=== PATIENT | male | born 1995 | race African-American/Black ===

== ENCOUNTER 2022-01-08 17:52 | Inpatient (IN) | payer MEDICAID, SELFPAY ==
--- NOTE | ~2022-01-08 | XR_ITS ---
EXAMINATION: XR CHEST CLINICAL INFORMATION: Chest pain COMPARISON: None TECHNIQUE: Frontal view of the chest was obtained. FINDINGS: There is a large left tension pneumothorax with shift of the mediastinum slightly to the right. Heart size normal. Right lung is clear. XR/XR chest 1V IMPRESSION: Left-sided tension pneumothorax.
--- NOTE | ~2022-01-08 | XR_ITS ---
EXAMINATION: XR CHEST CLINICAL INFORMATION: Evaluate pneumothorax COMPARISON: Previous chest x-rays from yesterday TECHNIQUE: Frontal view of the chest was obtained. FINDINGS: The cardiac and mediastinal contours are stable. Left pigtail chest tube appears unchanged in position. There is a small pneumothorax decreased from yesterday's exam. This measures maximum 1.8 cm at the lung apex. The lungs are clear. There is no pleural effusion. Bony structures are unremarkable. XR/XR chest 1V IMPRESSION: Interval decrease in now small left pneumothorax. Stable position of left chest tube.
--- NOTE | ~2022-01-08 | XR_ITS ---
EXAMINATION: XR CHEST CLINICAL INFORMATION: Status post chest tube placement COMPARISON: Chest x-ray of 01/08/2022 obtained at 6:47 PM. TECHNIQUE: Frontal view of the chest was obtained. FINDINGS: Left-sided pigtail catheter is in place with the pigtail of the catheter projecting over the left mid chest laterally. There is persistent moderate to large left pneumothorax although somewhat improved compared to previous x-ray of 01/08/2022. No evidence of pleural effusions. Right lung is clear. No evidence of mediastinal shift. Cardiomediastinal silhouette is normal. Regional skeleton is intact. XR/XR chest 1V IMPRESSION: Left pigtail catheter in place with mild interval improvement in the left pneumothorax with persistent moderate to large left pneumothorax.
--- NOTE | ~2022-01-08 | XR_ITS ---
EXAMINATION: XR CHEST CLINICAL INFORMATION: Left chest tube COMPARISON: Earlier same day TECHNIQUE: Frontal view of the chest was obtained. FINDINGS: Stable position of the left lateral pleural pigtail catheter. There is a stable small left apical pneumothorax measuring 2.3 cm from the apex left hemithorax, unchanged allowing for differences in patient positioning/projection. Right lung clear. No pleural effusion or pneumothorax. Normal heart size and pulmonary vascularity. XR/XR chest 1V IMPRESSION: No appreciable change in size of left apical pneumothorax.
--- NOTE | ~2022-01-08 | XR_ITS ---
EXAMINATION: XR CHEST CLINICAL INFORMATION: Follow-up COMPARISON: None TECHNIQUE: Frontal view of the chest was obtained. FINDINGS: There is a 5% left apical pneumothorax approximately 2 intercostal rib space. There is a left lateral mid chest pleural catheter which is stable. The lungs are otherwise well-expanded and clear. Heart size and pulmonary vascularity is normal. No gross bony abnormality seen. XR/XR chest 1V IMPRESSION: No change in at least 5% of left apical pneumothorax and a pigtail catheter along the left midlung. The lungs are otherwise clear.
--- NOTE | ~2022-01-08 | XR_ITS ---
EXAMINATION: XR CHEST CLINICAL INFORMATION: Follow up pneumothorax. Status post chest tube with wall suction. COMPARISON: Chest x-ray performed earlier on the same day on 01/08/2022. TECHNIQUE: Frontal view of the chest was obtained. FINDINGS: There is wtxslnli-gj-nigpwgckedc interval improvement of the left pneumothorax with small left apical pneumothorax. Left-sided pigtail is in place with the pigtail of the catheter projecting over the left mid chest laterally. Right lung is clear. No pleural effusions. Cardiomediastinal silhouette is normal. Visualized upper abdomen is unremarkable. Regional skeleton is intact. XR/XR chest 1V IMPRESSION: Joelarls-po-ixehmtnyicu interval improvement of the left pneumothorax with persistent small apical pneumothorax.
--- NOTE | ~2022-01-08 | XR_ITS ---
EXAMINATION: XR CHEST CLINICAL INFORMATION: Follow-up left pneumothorax COMPARISON: Previous chest x-ray most recent from yesterday TECHNIQUE: Frontal view of the chest was obtained. FINDINGS: The cardiac and mediastinal contours are stable. The lungs are clear. Left lateral chest tube appears unchanged in position. There is a small left apical pneumothorax measuring 2.3 cm in maximum dimension that appears unchanged. There is no pleural effusion. There is no right pneumothorax. Bony structures are unremarkable. XR/XR chest 1V IMPRESSION: Stable position of left chest tube. Stable small left apical pneumothorax.
--- NOTE | 2022-01-08 17:58 | ECG_ITS ---
Test Reason : CHEST PAIN Blood Pressure : / mmHG Vent. Rate : 106 BPM Atrial Rate : 106 BPM P-R Int : 142 ms QRS Dur : 092 ms QT Int : 328 ms P-R-T Axes : 079 162 070 degrees QTc Int : 435 ms Sinus tachycardia Right atrial enlargement Right axis deviation Pulmonary disease pattern Right ventricular hypertrophy Abnormal ECG No previous ECGs available Referred By: Generic ED Physician Electronically Signed By:PARUL ANDRE MD
[2022-01-08 18:11] VITALS: BP 98/60; PULSE 105; RESP 20; TEMP 36.4; O2SAT 98; BMI 20.3
[2022-01-08 18:14] LABS: MANUAL DIFF FLAG NO
[2022-01-08 18:18] LABS: Basophils Percent Auto 0.3 % (0-2); Eosinophils Percent Auto 0.1 % (0-4); Hematocrit 41.1 % (42.0-52.0); Hemoglobin 14.2 g/dl (14.0-18.0); Imm Gran Abs Auto 0.03 X10*3/uL (0.00-0.03); Imm Gran Pct Auto 0.3 % (0.0-0.4); Lymphocytes Absolute Auto 0.9 X10*3/uL (1.2-4.9); Lymphocytes Percent Auto 8.8 % (20-40); Mean Corpuscular HGB Conc 34.5 g/dl (31.0-36.0); Mean Corpuscular Hemoglobin 31.8 pg (27.0-33.0); Mean Corpuscular Volume 91.9 fL (80.0-98.0); Mean Platelet Volume 10.1 fL (9.4-12.4); Monocytes Absolute Auto 0.4 X10*3/uL (0.1-1.2); Monocytes Percent Auto 3.9 % (2-11); Neutrophils Absolute Auto 9.1 x10*3/uL (2.0-8.3); Neutrophils Percent Auto 86.6 % (45-73); Platelet Count 165 X10*3/uL (160-400); Red Blood Count 4.47 X10*6/uL (4.60-5.80); Red Cell Distribution Width 11.6 % (11.0-16.0); White Blood Count 10.5 X10*3/uL (4.8-10.8)
[2022-01-08 18:28] LABS: Anion Gap 13 (12-20); Blood Urea Nitrogen 18 mg/dL (9-16); Calcium 9.9 mg/dL (8.4-10.2); Carbon Dioxide 24 mmol/L (22-29); Chloride 107 mmol/L (96-108); Creatinine Clr Calc Pharmacy 80.4; Estimated Glomerular Filt Rate > 60; Glucose Random 120 mg/dL (60-115); Potassium 3.9 mmol/L (3.3-5.1); Sodium 140 mmol/L (135-145)
[2022-01-08 18:35] LABS: Troponin-I High Sensitivity < 3.5 ng/L (<3.5-35.0)
[2022-01-08 19:47] VITALS: BP 125/70; PULSE 78; RESP 15; TEMP 37.1; O2SAT 100
--- NOTE | 2022-01-08 19:49 | ED_ITS ---
HPI - Chest Pain General Chief Complaint: Chest Pain Stated Complaint: Heart attack? SOB, chest hurts and is tight Time Seen by Provider: 01/08/22 19:09 Source: patient Mode of arrival: ambulatory Limitations: no limitations History of Present Illness HPI narrative: Patient is smoker woke up today with slight chest pain mostly on the left side increased on deep inspiration got worse 1 hour prior to arrival pain is sharp in character that for taking a deep breath. No cough no fever no chills no other significant medical history Related Data Home Medications Medication Instructions Recorded Confirmed No Known Home Meds 01/08/22 01/08/22 Allergies Allergy/AdvReac Type Severity Reaction Status Date / Time No Known Allergies Allergy Verified 01/08/22 18:14 Review of Systems Review of Systems: Yes all other systems are reviewed and are negative [facility] Social History Social History Alcohol intake: current Smoked in Last 30 Days: Yes Use of substances other than those prescribed or required for medical reasons: No Any prior treatment program specific to substance use: No Advance Directives: No Physical Exam Vital Signs: Vital Signs: Last Vital Signs Temp 98.1 F 01/08/22 22:12 Pulse 48 L 01/09/22 00:23 Resp 20 01/09/22 00:23 BP 104/69 01/09/22 00:23 Pulse Ox 100 01/09/22 00:23 BMI result Body Mass Index 20.3 Appearance: Alert. Oriented X3. Mild distress thin built Eyes: No pallor or icterus ENT: Pharynx normal. Oral Mucosa moist Neck: Normal inspection. Neck supple. CVS: Normal heart rate and rhythm. Pulses normal. Respiratory: No respiratory distress. no wheezing/rales/rhonchi decreased air entry left side no crepitation Abdomen: Soft and nontender. Bowel sounds are present, no mass palpable, Skin: Skin warm and dry. Normal skin color. Normal skin turgor. Extremities: No lower extremity edema. No calf tenderness Neuro: Oriented X 3. Procedures Chest Tube Chest Tube 1: Chest Tube Location: left and mid axillary line Chest Tube Prep: Yes sterile drapes applied Local Anesthetic: lidocaine 2% Amount of anesthesia used (mL): 5 Incision Made With: #11 blade Post Procedure: sutured to skin Tube Drainage: none Post Procedure CXR?: Yes Patient Tolerated Procedure: Yes Progress: Bud PleurX catheter was placed on the left 4th intercostal space MDM - Chest Pain Lab Data Result diagrams: 01/08/22 18:08 01/08/22 18:08 Labs: Lab Results 01/08/22 01/08/22 01/08/22 Range/Units 18:08 18:08 18:08 WBC 10.5 (4.8-10.8) X10*3/uL RBC 4.47 L (4.60-5.80) X10*6/uL Hgb 14.2 (14.0-18.0) g/dl Hct 41.1 L (42.0-52.0) % MCV 91.9 (80.0-98.0) fL MCH 31.8 (27.0-33.0) pg MCHC 34.5 (31.0-36.0) g/dl RDW 11.6 (11.0-16.0) % Plt Count 165 (160-400) X10*3/uL MPV 10.1 (9.4-12.4) fL Immature Gran % (Auto) 0.3 (0.0-0.4) % Neut % (Auto) 86.6 H (45-73) % Lymph % (Auto) 8.8 L (20-40) % Morgan % (Auto) 3.9 (2-11) % Eos % (Auto) 0.1 (0-4) % Baso % (Auto) 0.3 (0-2) % Lymph # (Auto) 0.9 L (1.2-4.9) X10*3/uL Morgan # (Auto) 0.4 (0.1-1.2) X10*3/uL Eos # (Auto) 0.0 (0.0-0.4) X10*3/uL Baso # (Auto) 0.0 (0.0-0.2) X10*3/uL Abs Immat Gran (auto) 0.03 (0.00-0.03) X10*3/uL Absolute Neuts (auto) 9.1 H (2.0-8.3) x10*3/uL Absolute Nucleated RBC 0.000 (0.0-0.012) X10*3/uL Nucleated RBC % (auto) 0.0 (0.0-0.2) /100WBC Sodium 140 (135-145) mmol/L Potassium 3.9 (3.3-5.1) mmol/L Chloride 107 (96-108) mmol/L Carbon Dioxide 24 (22-29) mmol/L Anion Gap 13 (12-20) BUN 18 H (9-16) mg/dL Creatinine 1.17 (0.5-1.4) mg/dL Estim Creat Clear Calc 80.4 Estimated GFR > 60 Random Glucose 120 H (60-115) mg/dL Calcium 9.9 (8.4-10.2) mg/dL Troponin I High Sens < 3.5 (<3.5-35.0) ng/L Critical Care Time Critical Care Time Critical Care Time: Yes Total Critical Care Time: 45 Attestation: I spent 45 minutes of critical care, with interventions, assessments, speaking to patient, consultants, and family. Discharge Plan Discharge Clinical Impression: Pneumothorax Patient Disposition: Admitted As Inpatient
--- NOTE | 2022-01-08 19:50 | PC.NURSE ---
1915: MD gonzalez at bedside Verbal order given for 2% Lidocaine 10ml to be given sub q and 1 L NS to be given. Chest tube placed without incident. VSS. Monitored Through out Tolerated well. Staff at bedside: ; lisa mccann ERT: Darion RN: Natasha RT: Александр.
[2022-01-08 20:00] VITALS: BP 122/66; PULSE 70; RESP 18; O2SAT 100
[2022-01-08] MEDS: Ketorolac Tromethamine 30 MG/ML VIAL IVPUSH (20:54)
--- NOTE | 2022-01-08 21:06 | PC.NURSE ---
Medicated with IV ketorolac for pain. Water seal intact.
--- NOTE | 2022-01-08 21:51 | PHA.MEDREC ---
Pharmacy Consult ? Medication Reconciliation Pharmacy has completed the medication reconciliation. Patient reports no medications. Brooklynn Abdi, DonnieD
[2022-01-08 22:00] VITALS: BP 112/64; PULSE 61; RESP 20; TEMP 36.7; O2SAT 99
[2022-01-08 22:12] VITALS: BP 112/64; PULSE 55; RESP 22; TEMP 36.7; O2SAT 100
[2022-01-08] MEDS: Acetaminophen 325 MG TABLET 975 MG PO (22:22)
[2022-01-09 00:23] VITALS: BP 104/69; PULSE 48; RESP 20; O2SAT 100
[2022-01-09 01:34] LABS: COVID-19 Test Negative (Negative)
--- NOTE | 2022-01-09 02:01 | PM.IMHP ---
History of Present Illness Date of Service: 01/09/22 Chief Complaint: chest pain 26-year-old male with no significant past medical history except for cannabis use presented to the hospital today with a chief complaint of chest pain. Patient reported that he was in his house and he suddenly felt chest pain, tight in nature, severe, associated with shortness of breath; denied any lightheadedness or dizziness. Denies any diaphoresis. ; presented to the ER for further evaluation. Denies any chest pain at the time of my interview. Denies any numbness tingling or focal weakness. Denies any violent coughing or sneezing. Denies any falls or trauma. Denies any GI symptoms. Patient reported that he smokes marijuana. Review of all other systems is negative except mentioned above ER course: Per ER team patient on presentation noted to have CR shortness of breath; chest x-ray showed tension pneumothorax with mild midline shift; patient had pigtail catheter placed; follow-up chest x-ray showed improvement in the pneumothorax; notified Dr. Castle from Cardiothoracic surgery who suggested admission to the medicine service. [facility] Social History Alcohol intake: current Smoked in Last 30 Days: Yes Use of substances other than those prescribed or required for medical reasons: No Any prior treatment program specific to substance use: No Advance Directives: No Meds Allergies Allergy/AdvReac Type Severity Reaction Status Date / Time No Known Allergies Allergy Verified 01/08/22 18:14 Active Medications: Current Medications Heparin Sodium (Porcine) (Heparin Sodium,Porcine 5,000 Unit/Ml Vial) 5,000 unit SUBCUT Q8H [facility] Hydromorphone HCl (Hydromorphone Hcl 1 Mg/Ml Syringe) 0.5 mg IVPUSH Q4H PRN; Protocol PRN Reason: Pain, Severe (Pain Scale 7-10) Melatonin (Melatonin 3 Mg Tablet) 6 mg PO BEDTIME PRN PRN Reason: Insomnia Senna (Sennosides 8.6 Mg Tablet) 17.2 mg PO BEDTIME PRN PRN Reason: Constipation Sodium Chloride (0.9 % Sodium Chloride Flush 3 Ml Syringe) 3 ml IVFLUSH QSHIFT [facility] Home Medications Medication Instructions Recorded Confirmed Last Taken Type No Known Home Meds 01/08/22 01/08/22 Unknown History Physical Exam Vital Signs and Narrative: Vital Signs: Last Vital Signs Temp 98.1 F 01/08/22 22:12 Pulse 48 L 01/09/22 00:23 Resp 20 01/09/22 00:23 BP 104/69 01/09/22 00:23 Pulse Ox 100 01/09/22 00:23 BMI result Body Mass Index 20.3 Gen: Appears be in no acute distress HEENT: NCAT, Moist mucosa. Pulmonary: slightly diminished breath sounds on left side CVS: Normal S1-S2 Abdomen: BS+, Soft, Nontender Extremities: Warm well perfused Neuro: Alert and awake. Results Labs CBC and Chem 7: 01/08/22 18:08 01/08/22 18:08 Labs: Laboratory Results - last 24 hr 01/08/22 01/08/22 01/08/22 18:08 18:08 18:08 MCV 91.9 MCH 31.8 MCHC 34.5 RDW 11.6 Plt Count 165 MPV 10.1 Immature Gran % (Auto) 0.3 Neut % (Auto) 86.6 H Lymph % (Auto) 8.8 L Roosevelt % (Auto) 3.9 Eos % (Auto) 0.1 Baso % (Auto) 0.3 Lymph # (Auto) 0.9 L Roosevelt # (Auto) 0.4 Eos # (Auto) 0.0 Baso # (Auto) 0.0 Abs Immat Gran (auto) 0.03 Absolute Neuts (auto) 9.1 H Absolute Nucleated RBC 0.000 Nucleated RBC % (auto) 0.0 Anion Gap 13 Estim Creat Clear Calc 80.4 Estimated GFR > 60 Random Glucose 120 H Calcium 9.9 Troponin I High Sens < 3.5 COVID-19 ([facility]) COVID-19 Clin Com 01/09/22 01:13 MCV MCH MCHC RDW Plt Count MPV Immature Gran % (Auto) Neut % (Auto) Lymph % (Auto) Roosevelt % (Auto) Eos % (Auto) Baso % (Auto) Lymph # (Auto) Roosevelt # (Auto) Eos # (Auto) Baso # (Auto) Abs Immat Gran (auto) Absolute Neuts (auto) Absolute Nucleated RBC Nucleated RBC % (auto) Anion Gap Estim Creat Clear Calc Estimated GFR Random Glucose Calcium Troponin I High Sens COVID-19 ([facility]) Negative COVID-19 Clin Com See Note Imaging Radiologist's Impressions: Impressions Chest X-Ray 01/08/22 18:47 IMPRESSION: Left-sided tension pneumothorax. Chest X-Ray 01/08/22 20:11 IMPRESSION: Left pigtail catheter in place with mild interval improvement in the left pneumothorax with persistent moderate to large left pneumothorax. Chest X-Ray 01/08/22 20:37 IMPRESSION: Dhgkyjau-cu-mastpbatftw interval improvement of the left pneumothorax with persistent small apical pneumothorax. Assessment and Plan (1) Pneumothorax: Status: Acute Plan 26-year-old male with no significant past medical history except for cannabis use presented to the hospital today with a chief complaint of chest pain. Noted to have spontaneous pneumothorax. Admitted for further management. Spontaneous pneumothorax: Status post pigtail catheter placement with water-seal. Follow-up chest x-ray showed improvement in pneumothorax Discussed with Dr. jackson from ICU- who mentioned that post catheter the pneumothorax fairly improved but still has about 10-20%. Which will gradually improve. Recommended admission to the [facility]. Cardiothoracic surgery aware of the patient. Patient advised to avoid cannabis use, heavy exercise and air flight until cleared by pulmonology in couple weeks. Li daily.rsho Pain control Repeat chest x-ray in the morning DVT prophylaxis: Subcu heparin Code status: Full code Quality Stroke Does the patient have a stroke diagnosis?: No VTE Prior VTE?: No VTE Risk Level:: Medical - moderate - high VTE Device Contraindication: N/A - Device Ordered VTE Drug Contraindication: Treatment Not Indicated
[2022-01-09 04:25] VITALS: BP 114/68; PULSE 58; RESP 20; O2SAT 100
[2022-01-09] MEDS: ondansetron HCL 4 MG/2 ML VIAL IVPUSH ×2 (06:30→13:22)
[2022-01-09] MEDS: Ketorolac Tromethamine 15 MG/ML VIAL IVPUSH (06:30)
--- NOTE | 2022-01-09 06:39 | PC.NURSE ---
Patient complaining of nausea and pain where his chest tube is. Medicated with zofran and toradol. Patient continues to have heart rates in the 40-50. Hospitalist is aware. Patient is not symptomatic and usually runs in the 50's when awake.
[2022-01-09 06:59] LABS: MANUAL DIFF FLAG NO
[2022-01-09 07:06] LABS: Basophils Percent Auto 0.3 % (0-2); Eosinophils Absolute Auto 0.1 X10*3/uL (0.0-0.4); Eosinophils Percent Auto 1.6 % (0-4); Hematocrit 39.9 % (42.0-52.0); Hemoglobin 13.4 g/dl (14.0-18.0); Imm Gran Abs Auto 0.01 X10*3/uL (0.00-0.03); Imm Gran Pct Auto 0.2 % (0.0-0.4); Lymphocytes Absolute Auto 1.7 X10*3/uL (1.2-4.9); Mean Corpuscular HGB Conc 33.6 g/dl (31.0-36.0); Mean Corpuscular Hemoglobin 31.4 pg (27.0-33.0); Mean Corpuscular Volume 93.4 fL (80.0-98.0); Mean Platelet Volume 10.6 fL (9.4-12.4); Monocytes Absolute Auto 0.7 X10*3/uL (0.1-1.2); Monocytes Percent Auto 10.8 % (2-11); Neutrophils Absolute Auto 3.6 x10*3/uL (2.0-8.3); Neutrophils Percent Auto 59.1 % (45-73); Platelet Count 152 X10*3/uL (160-400); Red Blood Count 4.27 X10*6/uL (4.60-5.80); Red Cell Distribution Width 11.9 % (11.0-16.0); White Blood Count 6.1 X10*3/uL (4.8-10.8)
[2022-01-09 07:37] VITALS: BP 118/79; PULSE 44; RESP 19; TEMP 36.7; O2SAT 100
[2022-01-09 07:49] LABS: Anion Gap 10 (12-20); Blood Urea Nitrogen 17 mg/dL (9-16); Carbon Dioxide 27 mmol/L (22-29); Chloride 109 mmol/L (96-108); Creatinine Clr Calc Pharmacy 104.6; Estimated Glomerular Filt Rate > 60; Glucose Random 84 mg/dL (60-115); Potassium 4.2 mmol/L (3.3-5.1); Sodium 141 mmol/L (135-145)
[2022-01-09] MEDS: Heparin Sodium,Porcine 5,000 UNIT/ML VIAL 5000 UNIT SUBCUT ×2 (08:47→16:27)
[2022-01-09] MEDS: 0.9 % Sodium Chloride Flush 3 ML SYRINGE IVFLUSH ×2 (08:47→16:27)
--- NOTE | 2022-01-09 09:51 | PM.EVENT ---
Event Note Date of Service: 01/09/22 Event Note: day hospitalist update S pain controlled no dyspnea O VS T 98, BP 118/79, P 44, R 19, SaO2 100 on 2L NC gen NAD lungs CTAB, L-sided thoracostomy tube to suction CV bradycardic, regular, no m/r/g abd soft/NT ext no edema neuro no focal findings Impressions Chest X-Ray 01/08/22 18:47 IMPRESSION: Left-sided tension pneumothorax. Chest X-Ray 01/08/22 20:11 IMPRESSION: Left pigtail catheter in place with mild interval improvement in the left pneumothorax with persistent moderate to large left pneumothorax. Chest X-Ray 01/08/22 20:37 IMPRESSION: Bclczxss-oh-cwzewqtmksf interval improvement of the left pneumothorax with persistent small apical pneumothorax. Chest X-Ray 01/09/22 09:07 IMPRESSION: Interval decrease in now small left pneumothorax. Stable position of left chest tube. A/P hospital d#1 26yo healthy M with inhalation cannabis use presenting with dyspnea, admitted for spontaneous PTX with tension physiology, improved s/p chest tube - Thoracic Consult pending - chest tube to suction - repeat CXR in AM - pain control, IS
[2022-01-09 11:22] VITALS: BP 131/72; PULSE 46; RESP 19; O2SAT 100
--- NOTE | 2022-01-09 11:49 | PC.NURSE ---
contacted dr. dickens regarding pts HR at 46 while awake. pt has been bradycardic in the high 30's to 40s. no new orders at this time
--- NOTE | 2022-01-09 12:33 | PC.NURSE ---
pt vomited x2, reprots nausea. MD Villagran contacted for zofran.
[2022-01-09 15:55] VITALS: BP 119/72; PULSE 51; RESP 17; TEMP 36.9; O2SAT 100
[2022-01-09 22:48] VITALS: BP 116/60; PULSE 64; RESP 14; TEMP 37.1; O2SAT 97
--- NOTE | 2022-01-09 22:48 | PC.NURSE ---
Pt resting comfortably, chest tube in place, no leaks detected. Will continue to monitor. Awaiting bed assignment.
[2022-01-10] VITALS (7 sets, daily range): BP systolic 118–137; BP diastolic 59–83; PULSE 55–72; RESP 15–24; TEMP 37; O2SAT 98–100
[2022-01-10] MEDS: Heparin Sodium,Porcine 5,000 UNIT/ML VIAL 5000 UNIT SUBCUT ×3 (02:01→23:16)
[2022-01-10] MEDS: 0.9 % Sodium Chloride Flush 3 ML SYRINGE IVFLUSH ×4 (02:01→23:13)
--- NOTE | 2022-01-10 03:16 | PC.NURSE ---
Pt has complained of mild chest pain around chest tube insertion site, but says he does not want pain meds. Pt's seal is good no leaks detected in chest tube.
--- NOTE | 2022-01-10 10:16 | PC.NURSE ---
Pt denies pain at this time. He states that the tube is only uncomfortable in some positions. PT's sats high 90s on [address] remains in place with only small amount of serosanquenous drainage in bottom of tube possible from time of insertion. Suction remains at -20. Level 2 air leak noted wtih position change but otherwisde not present and there is no fluctuation in the water seal chamber. Tube insertion site without any drainage or SC emphysema
--- NOTE | 2022-01-10 10:48 | PC.NURSE ---
Chest tube placed on water seal per at this time.
--- NOTE | 2022-01-10 11:27 | MHC.CM.PN ---
Met with pt to discuss dc plan: pt states he is 'staying' with friends in [place] but has a residence at [address] [place] [address] [place] [address]. Pt somewhat vague with information. Pt has not seen a provider in close to 10 years as he has health on his side No Covid vax hx. Pt will not be eligible for post dc services as he does not have a [place] payor source or local PCP. He said his last known insurance was [employer] (?). He states he is 'considering' becoming a resident of [place]. Consult [facility] [place] [facility]. Pt has cell phone and will call friends for transportation. CM to follow.
--- NOTE | 2022-01-10 12:18 | PC.NURSE ---
At 1100 notified that pt had left shoulder pain similar to when he arrived to hospital after discontinuing suction and placing pt on water seal. Sats were appropriate at that shun (100% on 2liters NC). No new orders at this time. igeer message gave read rect from
--- NOTE | 2022-01-10 14:26 | P.PNIM_ITS ---
Subjective Subjective Date of Service: 01/10/22 Interval History: This AM no dyspnea and minimal discomfort from chest tube. Placed to water seal after discussing with Dr Felder; Thoracic Surgery PA will see pt this afternoon. Review of Systems Review of Systems: Yes all other systems are reviewed and are negative Physical Exam Vital Signs: Vital Signs: Last Vital Signs Temp 98.6 F 01/10/22 06:17 Pulse 72 01/10/22 10:13 Resp 22 H 01/10/22 10:13 BP 137/59 L 01/10/22 10:13 Pulse Ox 100 01/10/22 10:13 BMI result Body Mass Index 20.3 Gen: in no acute distress, thin HEENT: sclera anicteric, moist mucus membranes Neck: supple Lungs: L chest tube to suction, no air leak Heart: regular rate and rhythm, no murmurs Abd: soft, non-tender, non-distended Ext: no edema Skin: warm/well-perfused Neuro: alert and oriented x3, no focal findings Psych: appropriate affect Objective Data Active Medications Albuterol/Ipratropium (Albuterol/Iprat 2.5/0.5mg 3 Ml Ampul.Neb) 3 ml INHALE RQ4H PRN PRN Reason: Shortness of Breath/Wheezing Heparin Sodium (Porcine) (Heparin Sodium,Porcine 5,000 Unit/Ml Vial) 5,000 unit SUBCUT Q8H [facility] Last Admin: 01/10/22 08:28 Dose: 5,000 unit Documented by: CAMACHO Hydromorphone HCl (Hydromorphone Hcl 1 Mg/Ml Syringe) 0.5 mg IVPUSH Q4H PRN; Protocol PRN Reason: Pain, Severe (Pain Scale 7-10) Ketorolac Tromethamine (Ketorolac Tromethamine 15 Mg/Ml Vial) 15 mg IVPUSH Q6H PRN PRN Reason: moderate pain Melatonin (Melatonin 3 Mg Tablet) 6 mg PO BEDTIME PRN PRN Reason: Insomnia Ondansetron HCl (Ondansetron Hcl 4 Mg/2 Ml Vial) 4 mg IVPUSH Q4H PRN PRN Reason: nausea/vomiting Last Admin: 01/09/22 13:22 Dose: 4 mg Documented by: KONRAD Senna (Sennosides 8.6 Mg Tablet) 17.2 mg PO BEDTIME PRN PRN Reason: Constipation Sodium Chloride (0.9 % Sodium Chloride Flush 3 Ml Syringe) 3 ml IVFLUSH QSHIFT [facility] Last Admin: 01/10/22 08:30 Dose: 3 ml Documented by: CAMACHO Labs CBC & Chem 7: 01/09/22 05:48 01/09/22 05:48 Assessment and Plan (1) Pneumothorax: Status: Acute Plan hospital d#2 26yo M presenting with chest pain and found to have spontaneous tension PTX, improved after chest tube placement 01/08 - awaiting Thoracic Surgery consult, chest tube to water seal - pt should avoid smoking cannabis and usual flight/exercise restrictions - UFH for VTE ppx Quality Stroke Does the patient have a stroke diagnosis?: No VTE Prior VTE?: No VTE Risk Level:: Medical - moderate - high VTE Device Contraindication: N/A - Device Ordered VTE Drug Contraindication: Treatment Not Indicated
--- NOTE | 2022-01-10 14:29 | PC.NURSE ---
X-ray ordered and pt notified of plan. Pt placed back o -20cm suction at this time per pending CXR results. Pt's VSS
[2022-01-10] MEDS: Ketorolac Tromethamine 15 MG/ML VIAL IVPUSH (14:36)
--- NOTE | 2022-01-10 18:21 | PM.CNGS ---
History of Present Illness Consult details Consult date: 01/10/22 Narrative: Patient is a 26-year-old male with a past history of childhood asthma, chronic marijuana smoker who smokes approximately 1/4 oz of marijuana daily presented to [facility] after having left-sided chest and shoulder pain with increased shortness of breath 2 nights ago on Monday night. Patient states he was sitting at home during this occurrence with his and denies any trauma to his chest. A chest x-ray was obtained which showed a large left-sided pneumothorax. A pigtail catheter was placed by ED physician and chest tube attached to Pleur-Evac at -20 low wall suction with full resolution of left-sided pneumothorax For wished thoracic surgery is consulted for pest controller assistant in managing. upon my arrival to the emergency department patient denies any shortness of breath at rest and states that his breathing as well as left-sided chest pain has greatly improved. He continues on 2 L nasal cannula and I placed his left-sided chest tube to water seal with plans for a repeat chest x-ray tomorrow a.m. Remaining 10 point review of systems negative. Review of Systems Review of Systems: Yes all other systems are reviewed and are negative [facility] Social History Social History Alcohol intake: current Smoked in Last 30 Days: Yes Use of substances other than those prescribed or required for medical reasons: No Any prior treatment program specific to substance use: No Advance Directives: No service: No Current occupational status: unemployed Meds Allergies Allergy/AdvReac Type Severity Reaction Status Date / Time No Known Allergies Allergy Verified 01/08/22 18:14 Active Medications: Current Medications Albuterol/Ipratropium (Albuterol/Iprat 2.5/0.5mg 3 Ml Ampul.Neb) 3 ml INHALE RQ4H PRN PRN Reason: Shortness of Breath/Wheezing Heparin Sodium (Porcine) (Heparin Sodium,Porcine 5,000 Unit/Ml Vial) 5,000 unit SUBCUT Q8H GEOVANNA Last Admin: 01/10/22 08:28 Dose: 5,000 unit Documented by: Hydromorphone HCl (Hydromorphone Hcl 1 Mg/Ml Syringe) 0.5 mg IVPUSH Q4H PRN; Protocol PRN Reason: Pain, Severe (Pain Scale 7-10) Ketorolac Tromethamine (Ketorolac Tromethamine 15 Mg/Ml Vial) 15 mg IVPUSH Q6H PRN PRN Reason: moderate pain Last Admin: 01/10/22 14:36 Dose: 15 mg Documented by: Melatonin (Melatonin 3 Mg Tablet) 6 mg PO BEDTIME PRN PRN Reason: Insomnia Ondansetron HCl (Ondansetron Hcl 4 Mg/2 Ml Vial) 4 mg IVPUSH Q4H PRN PRN Reason: nausea/vomiting Last Admin: 01/09/22 13:22 Dose: 4 mg Documented by: Senna (Sennosides 8.6 Mg Tablet) 17.2 mg PO BEDTIME PRN PRN Reason: Constipation Sodium Chloride (0.9 % Sodium Chloride Flush 3 Ml Syringe) 3 ml IVFLUSH QSHIFT [facility] Last Admin: 01/10/22 08:30 Dose: 3 ml Documented by: Home Medications Medication Instructions Recorded Confirmed Last Taken Type No Known Home Meds 01/08/22 01/08/22 Unknown History Physical Exam Vital Signs: Vital Signs: Last Vital Signs Temp 98.6 F 01/10/22 06:17 Pulse 62 01/10/22 14:30 Resp 24 H 01/10/22 14:30 BP 134/68 01/10/22 14:30 Pulse Ox 99 01/10/22 14:30 BMI result Body Mass Index 20.3 Const: General: cooperative, comfortable and no acute distress Orientation/consciousness: patient oriented x3 HEENT: Head: Yes normal to inspection and Yes normocephalic Eyes: General: appearance normal, both eyes and all related structures Conjunctivae: conjunctivae normal Sclerae: sclerae normal Pupils: Equal, round and reactive pupils present Neck: Neck: Yes normal visual inspection Chest: Other: left-sided pigtail catheter remains indwelling into pleural cavity and secured with dressing clean and dry and intact. No detectable air leak with minimal serosanguineous fluid output on water seal. Resp: Other: Breath sounds clear to auscultation bilaterally with no adventitious sounds such as wheezes or rhonchi Cardio: Other: regular rate and rhythm with S1-S2 appreciated. No murmurs rubs or gallops GI: Inspection: Yes normal to inspection Percussion: Yes normal to percussion Auscultation: normal bowel sounds Rectal Exam - Male: Yes deferred Neuro: General: patient oriented x3 Cranial nerves: Yes Equal, round and reactive pupils present Extrem: General: Yes normal to inspection, No clubbing and No cyanosis Right upper extremity: normal capillary refill Left upper extremity: normal capillary refill Results Labs Result diagrams: 01/09/22 05:48 01/09/22 05:48 Labs: All other labs normal. Imaging Chest x-ray: report reviewed and image reviewed Assessment and Plan (1) Pneumothorax: Status: Acute [facility] d#2 26yo M presenting with chest pain and found to have spontaneous tension PTX, improved after chest tube placement 01/08 - left-sided chest tube placed to water seal this evening. There is no detectable air leak and chest x-ray shows full re-expansion of left-sided pneumothorax. - Plan for chest x-ray tomorrow a.m.. - If morning chest x-ray remained stable will plan for chest tube removal tomorrow afternoon and patient will be okay for discharge that time. - Incentive spirometry. - OOB in chair for all meals. Procedures Date of Service Date of Service: 01/10/22
[2022-01-10 19:26] LABS: Glucose, Whole Blood 142 mg/dL (60-115)
--- NOTE | 2022-01-11 00:21 | PC.NURSE ---
Report given to ABRAM Ramesh on IMC.
--- NOTE | 2022-01-11 00:48 | PC.NURSE ---
This nurse and sterile proc tech transferring patient to [facility] bed 446. Chest tube in place with water seal. VSS.
[2022-01-11 01:30] VITALS: BP 118/67; PULSE 52; RESP 18; TEMP 36.8; O2SAT 100
[2022-01-11 08:00] VITALS: BP 116/61; PULSE 67; RESP 16; TEMP 37.2; O2SAT 100
[2022-01-11] MEDS: 0.9 % Sodium Chloride Flush 3 ML SYRINGE IVFLUSH ×3 (08:42→23:43)
[2022-01-11] MEDS: Heparin Sodium,Porcine 5,000 UNIT/ML VIAL 5000 UNIT SUBCUT ×2 (08:48→15:52)
[2022-01-11 11:15] VITALS: BP 111/66; PULSE 55; RESP 18; TEMP 36.8; O2SAT 100
--- NOTE | 2022-01-11 14:18 | HO.PM.IMPN ---
Subjective Subjective Date of Service: 01/11/22 Interval History: No acute issues overnight. Remains tolerant of chest to. Review of Systems Denies chest pain Denies shortness of breath Denies nausea vomiting diarrhea Denies fever chills Physical Exam Vital Signs: Vital Signs: Last Vital Signs Temp 98.3 F 01/11/22 11:15 Pulse 55 01/11/22 11:15 Resp 18 01/11/22 11:15 BP 111/66 01/11/22 11:15 Pulse Ox 100 01/11/22 11:15 BMI result Body Mass Index 20.0 Const: Other: Awake alert oriented x3 no acute distress Resp: Other: Clear to auscultation bilaterally Cardio: Other: No S4; positive S1-S2; no S3 murmurs rubs or gallops GI: Other: Soft nontender nondistended normoactive bowel sounds Extrem: Other: No edema bilaterally Objective Data Active Medications Albuterol/Ipratropium (Albuterol/Iprat 2.5/0.5mg 3 Ml Ampul.Neb) 3 ml INHALE RQ4H PRN PRN Reason: Shortness of Breath/Wheezing Heparin Sodium (Porcine) (Heparin Sodium,Porcine 5,000 Unit/Ml Vial) 5,000 unit SUBCUT Q8H GEOVANNA Last Admin: 01/11/22 08:48 Dose: 5,000 unit Documented by: KELSEY Hydromorphone HCl (Hydromorphone Hcl 1 Mg/Ml Syringe) 0.5 mg IVPUSH Q4H PRN; Protocol PRN Reason: Pain, Severe (Pain Scale 7-10) Ketorolac Tromethamine (Ketorolac Tromethamine 15 Mg/Ml Vial) 15 mg IVPUSH Q6H PRN PRN Reason: moderate pain Last Admin: 01/10/22 14:36 Dose: 15 mg Documented by: ENRIQUE Melatonin (Melatonin 3 Mg Tablet) 6 mg PO BEDTIME PRN PRN Reason: Insomnia Ondansetron HCl (Ondansetron Hcl 4 Mg/2 Ml Vial) 4 mg IVPUSH Q4H PRN PRN Reason: nausea/vomiting Last Admin: 01/09/22 13:22 Dose: 4 mg Documented by: KONRAD Senna (Sennosides 8.6 Mg Tablet) 17.2 mg PO BEDTIME PRN PRN Reason: Constipation Sodium Chloride (0.9 % Sodium Chloride Flush 3 Ml Syringe) 3 ml IVFLUSH QSHIFT [facility] Last Admin: 01/11/22 08:42 Dose: 3 ml Documented by: KELSEY Labs CBC & Chem 7: 01/09/22 05:48 01/09/22 05:48 Labs: Laboratory Results - last 24 hr 01/10/22 19:21 POC Glucose 142 H Assessment and Plan (1) Pneumothorax: Status: Acute Plan 26yo M presenting with chest pain and found to have spontaneous tension PTX, improved after chest tube placement 01/08... Continues to do well 1. Spontaneous pneumothorax - repeat chest x-ray today with small apical pneumothorax -await thoracic input this afternoon Quality Stroke Does the patient have a stroke diagnosis?: No VTE Prior VTE?: No VTE Risk Level:: Medical - moderate - high VTE Device Contraindication: N/A - Device Ordered VTE Drug Contraindication: Treatment Not Indicated
[2022-01-11 15:53] VITALS: BP 112/57; PULSE 65; RESP 18; TEMP 36.8; O2SAT 99
--- NOTE | 2022-01-11 16:51 | P.PNTS_ITS ---
Subjective Subjective Date of Service: 01/11/22 Interval history: Patient's left-sided pigtail catheter/ chest tube has remained on water seal for the past 24 hours. There is no detectable air leak with minimal serous sanguinous fluid output. Morning chest x-ray shows very small and stable left apical pneumothorax when compared to previous exam. His left-sided pigtail catheter was removed without incident and dry occlusive dressing put in place which should be removed in 48 hours. Patient denies any shortness of breath at rest and states he has been achieving 1500 with incentive spirometry. Remaining 10 point review of systems negative Physical Exam Vital Signs: Vital Signs: Last Vital Signs Temp 98.3 F 01/11/22 15:53 Pulse 65 01/11/22 15:53 Resp 18 01/11/22 15:53 BP 112/57 L 01/11/22 15:53 Pulse Ox 99 01/11/22 15:53 BMI result Body Mass Index 20.0 Const: Other: Awake alert oriented x3 no acute distress General: cooperative, comfortable and no acute distress Orientation/consciousness: patient oriented x3 HEENT: Head: Yes normal to inspection and Yes normocephalic Eyes: General: appearance normal, both eyes and all related structures Conjunctivae: conjunctivae normal Sclerae: sclerae normal Pupils: Equal, round and reactive pupils present Neck: Neck: Yes normal visual inspection Chest: Other: left-sided pigtail catheter remains indwelling into pleural cavity and secured with dressing clean and dry and intact. No detectable air leak with minimal serosanguineous fluid output on water seal. Resp: Other: Clear to auscultation bilaterally Cardio: Other: No S4; positive S1-S2; no S3 murmurs rubs or gallops GI: Other: Soft nontender nondistended normoactive bowel sounds Inspection: Yes normal to inspection Percussion: Yes normal to percussion Auscultation: normal bowel sounds Rectal Exam - Male: Yes deferred Neuro: General: patient oriented x3 Cranial nerves: Yes Equal, round and reactive pupils present Extrem: Other: No edema bilaterally General: Yes normal to inspection, No clubbing and No cyanosis Right upper extremity: normal capillary refill Left upper extremity: normal capillary refill Procedures Date of Service Date of Service: 01/11/22 Progress Note: A&P Assessment and plan (1) Pneumothorax: Status: Acute Plan hospital d#2 26yo M presenting with chest pain and found to have spontaneous tension PTX, improved after chest tube placement 01/08 - left-sided pigtail catheter/ chest tube has remained on water seal over past 24 hours. Morning chest x-ray shows stable very small left apical pneumothorax. There is no detectable air leak and minimalserosanguineous fluid output. - his left-sided chest tube was removed without incident and a dry occlusive dressing put in place with instructions to remove dressing in 48 hours. - Patient was also informed not to go swimming for the next 4 weeks. - tube stain from scuba diving for ever. - not fly in an airplane for least 4 weeks. - patient was also advised to abstain from any type of smoking which may irrita te and cause a recurrence of his left pneumothorax. - Patient is okay from a thoracic surgical point of view to be discharged from hospital 2 hours after chest tube removal which will be at 18:50 this case was discussed with Dr. Felder if you have any questions or concerns please do not hesitate to contact the thoracic Surgical department. Time Spent With Patient Time: Total time spent is greater than 50% in coordination of care (as documented) at patient's floor/unit and/or counseling patient: Quality Stroke Does the patient have a stroke diagnosis?: No VTE Prior VTE?: No VTE Risk Level:: Medical - moderate - high VTE Device Contraindication: N/A - Device Ordered VTE Drug Contraindication: Treatment Not Indicated
[2022-01-11 19:23] VITALS: BP 101/58; PULSE 73; RESP 18; TEMP 37.3; O2SAT 97
[2022-01-11 23:19] VITALS: BP 112/58; PULSE 69; RESP 18; TEMP 37.2; O2SAT 95
[2022-01-12 03:18] VITALS: BP 111/58; PULSE 67; RESP 18; TEMP 36.4; O2SAT 95
[2022-01-12 07:46] VITALS: BP 115/62; PULSE 57; RESP 19; TEMP 37.2; O2SAT 99
[2022-01-12] MEDS: 0.9 % Sodium Chloride Flush 3 ML SYRINGE IVFLUSH (08:18)
[2022-01-12 11:11] VITALS: BP 96/51; PULSE 57; RESP 18; TEMP 37.6; O2SAT 99
--- NOTE | 2022-01-12 11:18 | PM.DS ---
DS: Providers Provider Date of Service: 01/12/22 Date of admission: 01/09/22 01:57 Date of discharge: 01/12/22 Primary care physician: Unknown Physician Consults: 01/09/22 01:59 Consult to Thoracic Surgery Routine Consulting Provider: David Felder Reason for consultation: Pneumothorax 01/10/22 07:36 Consult to Thoracic Surgery Stat Consulting Provider[place] [facility] Reason for consultation: 2nd request. pt came in 01/08/22 with tesnion PTX 01/10/22 09:50 Consult to Thoracic Surgery Stat Consulting Provider: Nelsy Felder Reason for consultation: 3rd request. Pt came in with tension PTX. Needs to be seen DS: Diagnosis Discharge Diagnosis (1) Pneumothorax: Status: Acute DS: Summary Hospital Course Hospital Course: 26-year-old male with no significant past medical history except for cannabis use presented to the hospital today with a chief complaint of chest pain.? Patient reported that he was in his house and he suddenly felt chest pain, tight in nature, severe, associated with shortness of breath; denied any lightheadedness or dizziness.? Denies any diaphoresis. ; presented to the ER for further evaluation.? Hospital Course Chest x-ray demonstrated a tension pneumothorax on the left for which a pigtail catheter was placed for decompression. Follow-up x-ray demonstrated improvement in pneumothorax. Patient is was admitted to the medical service and seen in consultation by thoracic surgery. On 01/11, repeat chest x-ray in the afternoon demonstrated resolution of pneumothorax and chest tube was pulled by thoracic. On the morning of discharge, patient is awake alert in no respiratory distress with adequate aeration to bases. At this point in time per Thoracics recommendation he can be discharged home. He will follow-up with his PCP as indicated. Precautionary measures have been added to his discharge instructions Time Spent with Patient Time attestation: Total time spent providing and/or coordinating discharge services: Discharge coordination time: Greater than 30 minutes Quality: Safe Use of Opioids Does Pt have an Active Cancer Diagnosis on the Problem List?: No Quality: Stroke Does the patient have a stroke diagnosis?: No Physical Exam Vital Signs: Vital Signs: Last Vital Signs Temp 99.6 F 01/12/22 11:11 Pulse 57 01/12/22 11:11 Resp 18 01/12/22 11:11 BP 96/51 L 01/12/22 11:11 Pulse Ox 99 01/12/22 11:11 BMI result Body Mass Index 20.0 Const: Other: Awake alert oriented x3 no acute distress Resp: Other: Clear to auscultation bilaterally Cardio: Other: No S4; positive S1-S2; no S3 murmurs rubs or gallops GI: Other: Soft nontender nondistended normoactive bowel sounds Extrem: Other: No edema bilaterally Discharge Plan Discharge Patient Disposition: Home, Self-Care Discharge Diagnosis: Spontaneous pneumothorax Referrals: Physician,Unknown J [Primary Care Provider] - 1 Week Discharge Medications: New ibuprofen 600 mg tablet 600 mg PO TID MDD 1800 PRN (Reason: pain (scale score 1-3)) Qty: 30 0RF Discharge Orders: Discharge Order (Routine); Ordered 01/12/22 Ordered By: Magno Zavaleta Diet: advance to usual diet Activity on Discharge: As tolerated Stand Alone Forms: Patient Portal Discharge page Care Plan Goals: - no swimming for the next 4 weeks. - no scuba diving for ever. - do not fly in an airplane for least? 4 weeks. - abstain from any type of smoking which may irritate and cause a recurrence of his left pneumothorax. Health Concerns: Follow-up with your primary care in 2 weeks Plan of Treatment: Motrin 600 mg 3 times a day with food for pain Assessment: See discharge summary
--- NOTE | 2022-01-12 11:23 | MHC.CM.PN ---
pt dcd no skilled servceis ordered by
== END 2022-01-12 13:20 | disposition home or self-care (01) | DRG 143 ==
LOC: HO.ED 20:42 → HO.EDOVER 01-09 02:12 → HO.IMC 01-11 00:09
PROVIDERS: Family Medicine; Admitting Provider Hospitalist; Emergency Provider Internal Medicine; Visit Provider Hospitalist
DX: J93.0 Spontaneous tension pneumothorax (principal); Z20.822 Contact with and (suspected) exposure to COVID-19
CPT/HCPCS: 36415; 71045; 80048; 82947; 84484; 85025; 87635; 93005; 96374; 99285; 99291; J1885; J2405

== ENCOUNTER 2022-04-13 10:35 | Emergency (ER) | payer MEDICAID, SELFPAY ==
--- NOTE | ~2022-04-13 | XR_ITS ---
EXAMINATION: XR CHEST CLINICAL INFORMATION: Lung pain, history of pneumo. COMPARISON: 01/11/2022 chest radiographs. TECHNIQUE: 2 views of the chest were obtained. FINDINGS: No significant abnormality is noted involving the heart, lungs, mediastinum, bony thorax or soft tissues. XR/XR chest 2V IMPRESSION: No acute cardiopulmonary process.
[2022-04-13 11:04] VITALS: BP 118/78; PULSE 70; RESP 16; TEMP 36.6; O2SAT 98; BMI 24.2
--- NOTE | 2022-04-13 12:00 | ED.GENADULT ---
HPI - General Adult General Chief complaint: General Medical Stated complaint: pain in lungs Time Seen by Provider: 04/13/22 11:52 Source: patient Mode of arrival: ambulatory History of Present Illness HPI narrative: 27-year-old male with a past medical history of spontaneous tension pneumothorax in December 2021, presenting to the ED complaining of weird feeling to left lung x couple days. Reports discomfort. Admits to mild cough. Denies SOB, CP, fever, chills, pedal edema, current cigarette smoking Onset (ago): day(s) Related Data Previous Rx's Medication Instructions Recorded ibuprofen 600 mg tablet 600 mg PO TID PRN pain (scale 01/12/22 score 1-3) #30 tabs Allergies Allergy/AdvReac Type Severity Reaction Status Date / Time No Known Allergies Allergy Verified 01/08/22 18:14 Review of Systems Review of Systems: Constitutional: No Weight loss, No Fever, No Chills ENT/Mouth: No Ear Pain, No Nasal Congestion, No sore throat, No Rhinorrhea, No Swallowing Difficulty Cardiovascular: No Chest Pain, No SOB, +lung discomfort Respiratory: No Cough, No Sputum, No Wheezing Gastrointestinal: No Nausea, No Vomiting, No Abdominal pain Genitourinary: No Dysuria, No Urinary Frequency, No Flank Pain Musculoskeletal: No joint pain, No Myalgias, No Joint Swelling Skin: No Skin Lesions, No rash Neuro: No Weakness, No Numbness, No Paresthesias Yes all other systems are reviewed and are negative Constitutional: Constitutional: Reports as per [facility] Past Medical History Attestation statement: The following information was validated with the patient. Social History Social History Household Members: Family Housing: House Do you presently have visiting nurse or other home services: No Alcohol intake: current Patient Tobacco Use Status: Never used Tobacco Substance Use Type: Marijuana Advance Directives: No Advance Directives Information Provided: No service: No Current occupational status: unemployed Physical Exam ED Vital Signs: Vital Signs - 24 hr 04/13/22 11:04 Temperature 98 F Pulse Rate 70 Respiratory Rate 16 Blood Pressure 118/78 Pulse Oximetry 98 Oxygen Delivery Method Room Air BMI result Body Mass Index 24.2 Const General: cooperative, healthy appearing and no acute distress Orientation/consciousness: patient oriented x3 Limitations: no limitations HENMT Head: Yes normal to inspection and Yes atraumatic Ears: hearing grossly normal bilaterally General nose exam: Normal external nose present Face and sinus: Yes normal facial exam Eyes General: appearance normal, both eyes and all related structures EOM: EOMs intact bilaterally Neck Neck: Yes normal visual inspection and Yes no meningeal signs Resp Effort & Inspection: normal respiratory effort, not labored, no respiratory distress, no stridor and no tripod positioning Auscultation: clear to auscultation bilaterally, no crackles, no rales, no rhonchi and no wheezes Cardio Rate: regular rate Heart sounds: S1 normal heart sound present and S2 normal heart sound present Skin Rashes: no rashes Wounds: no wounds Neuro General: patient oriented x3, tone normal and no meningeal signs Gait exam (Neuro): Normal gait present Extrem General: Yes normal to inspection and Yes no pedal edema Course Course Course Narrative: XR chest 2V IMPRESSION: No acute cardiopulmonary process. Results discussed with patient including worrisome signs and symptoms and strict return precautions, and when to return to the emergency department. They verbalized understanding and feel safe for discharge at this time. Medical Decision Making MDM Narrative Medical decision making narrative: 27-year-old male with a past medical history of spontaneous tension pneumothorax in December 2021, presenting to the ED complaining of weird feeling to left lung x couple days. On exam vital signs stable, NAD, nontoxic appearing, lungs CTA. Concern for pneumonia vs ?Bronchitis vs possible recurrent PTX. Perc negative. Low suspicion for PE/ACS Plan: CXR Medical Records Medical records reviewed: Yes I reviewed the patient's medical records. Lab Data Lab results reviewed: Yes I reviewed the patient's lab results. Discharge Plan Discharge Clinical Impression: Chest discomfort Patient Disposition: Home, Self-Care Instructions: Noncardiac Chest Pain (ED) Additional Instructions: Your chest x-ray is unremarkable. Please have close follow-up with her doctor. If symptoms persist or worsen, he develops shortness of breath, chest pain, swelling in your legs or fever return to the emergency department Prescriptions: No Action ibuprofen 600 mg tablet 600 mg PO TID MDD 1800 PRN (Reason: pain (scale score 1-3)) Qty: 30 0RF Referrals: Physician,None [Primary Care Provider] -
== END 2022-04-13 12:28 | disposition home or self-care (01) ==
PROVIDERS: Emergency Provider Emergency Medicine
DX: R07.9 Chest pain, unspecified (principal); F12.90 Cannabis use, unspecified, uncomplicated
CPT/HCPCS: 71046; 99283

== ENCOUNTER 2022-10-07 18:42 | Emergency (ER) | payer MEDICAID, SELFPAY ==
[2022-10-07 21:04] VITALS: BP 111/81; PULSE 70; RESP 16; TEMP 36.9; O2SAT 98; BMI 28.1
--- NOTE | 2022-10-07 21:05 | ED.GENADULT ---
HPI - General Adult General Chief complaint: Dental/Oral Stated complaint: Foreign object in upper gum Time Seen by Provider: 10/07/22 21:05 Source: patient Mode of arrival: ambulatory Limitations: no limitations History of Present Illness HPI narrative: 27-year-old male presenting to the ER with complaints of 2 lumps on the roof of his mouth that he noticed yesterday. He reports it is not painful. He is concerned for possible cancer. Denies any other symptoms related to this. MD complaint: Lumps on the roof of his mouth Onset (ago): day(s) (Yesterday) Related Data Previous Rx's Medication Instructions Recorded ibuprofen 600 mg tablet 600 mg PO TID PRN pain (scale 01/12/22 score 1-3) #30 tabs Allergies Allergy/AdvReac Type Severity Reaction Status Date / Time No Known Allergies Allergy Verified 01/08/22 18:14 Review of Systems Review of Systems: Constitutional : No Fever, No Chills, No changes in PO intake, No difficulty speaking, no recent dental procedure, no heat or cold intolerance while eating, no recent face trauma, ENT/Mouth : No Dental pain, No Sore throat, No Jaw pain, No throat swelling, No swallowing difficulty, no change in voice, No facial swelling, no drooling, no trismus, no bleeding, no lacerations, no tongue swelling, gum swelling, +lumps on roof of his mouth Eyes: No Eye Pain, No periorbital Swelling Cardiovascular : No Chest Pain, No SOB Respiratory : No Cough, No Sputum, No Wheezing, No Smoke Exposure, No Dyspnea Gastrointestinal : No Nausea, No Vomiting, No Diarrhea Genitourinary : No Dysuria Musculoskeletal : No Myalgias Skin : No rash, no facial swelling or redness, Neuro : No Weakness, No Numbness, No Headache Yes all other systems are reviewed and are negative PMFSH Past Medical History Attestation statement: The following information was validated with the patient. Source: old records reviewed and nursing notes reviewed Social History Social History Household Members: Family Housing: House Do you presently have visiting nurse or other home services: No Alcohol intake: current Patient Tobacco Use Status: Never used Tobacco Substance Use Type: Marijuana service: No Current occupational status: unemployed Physical Exam ED Vital Signs: Vital Signs - 24 hr 10/07/22 21:04 Temperature 98.5 F Pulse Rate 70 Respiratory Rate 16 Blood Pressure 111/81 Pulse Oximetry 98 Oxygen Delivery Method Room Air BMI result Body Mass Index 28.1 vital signs have been reviewed as normal and appeared to be correct. Blood pressure normal. Heart rate normal. Respiration rate normal. Temperature normal. Oxygen saturation normal. Appearance: Alert. Oriented X3. No acute distress. Head: Normal external exam. Normocephalic. Atraumatic. Eyes: PERRLA. EOMI. Conjunctiva and sclera normal. Eyelids normal. ENT: Pharynx normal. Uvula midline. Moist mucous membranes. No lesions/ulcerations or masses noted on the tongue. Normal voice. No trismus noted. No drooling noted. No muffled voice noted. Neck: Normal inspection. Neck supple. FROM. No adenopathy. Thyroid Normal. No tracheal deviation noted. No crepitus is noted. No meningeal signs. No neck mass noted. No signs of trauma noted. CVS: Normal heart rate and rhythm. Heart sound normal. Pulses normal throughout. No murmurs/rales/gallops. Respiratory: No respiratory distress. Painless inspiration. Breath sounds normal. No wheezes/rales/rhonchi noted. Chest nontender. No crepitus is noted. No signs of trauma noted. No accessory muscle usage noted or decreased air movement noted. No signs of trauma. Back: Full range of motion noted. Skin: Skin warm and dry. Normal skin color. Normal skin turgor. No rashes/lesions/lacerations noted. Extremities: Extremities exhibit normal range of motion and nontender. Neuro: Oriented X 3. No motor deficit. No sensory deficit. Reflexes normal. Normal steady gait. No focal neuro deficits noted. CN's II-XII intact bilaterally? Course Course Course Narrative: Patient has a normal oral exam. Posterior pharynx within normal limits. There are no lumps or masses or abnormalities noted. He is tolerating secretions well. Therefore at this time will DC home instructions return if any new or worsening symptoms follow up with primary care provider. Patient understands agrees with this plan. Discharge Plan Discharge Clinical Impression: Normal exam Patient Disposition: Home, Self-Care Instructions: Normal Exam (ED) Prescriptions: No Action ibuprofen 600 mg tablet 600 mg PO TID MDD 1800 PRN (Reason: pain (scale score 1-3)) Qty: 30 0RF Referrals: Physician,None [Primary Care Provider] - 2 days (your pcp)
== END 2022-10-07 21:23 | disposition home or self-care (01) ==
PROVIDERS: Emergency Provider Emergency Medicine
DX: R09.89 Other specified symptoms and signs involving the circulatory and respiratory systems (principal)
CPT/HCPCS: 99282

== ENCOUNTER 2025-03-09 11:21 | Emergency (ER) | payer MEDICAID, SELFPAY ==
--- OUTSIDE RECORDS SUMMARY | 2024-12-06 09:00 | XMS_ITS ---
Author Organization [facility] Address [address] [place] [phone] Care Team Providers Care Bpm Solution Architect Name Role Phone Hung Ludwig Primary Care Provider [facility], Nursing [facility] [phone] REASON FOR VISIT office ; intake Social History Sex Assigned At : Social History Observation Description Sex Assigned At Male Encounters Encounter Location Date Provider Diagnosis [address] [phone] 12/06/2024 Nursing [facility] Assessments Encounter Date Diagnosis (ICD Code) Assessment Notes Treatment Notes Treatment Clinical Notes Section Notes 12/06/2024 Other Time spent in visit: minutes Covid verbal screening negative. Plan Of Treatment Treatment Notes Assessment Notes Other Time spent in visit: minutes Covid verbal screening negative. Next Appt Details Provider Name:Nursing [facility], 03/14/2025 01:00:00 PM, [address] [place] [address] [place], [phone], Progress Notes * Aide CHRISTAINSENDOB: [birth year] (30 yo M)Acc No.[id number]:12/06/2024 Progress Notes Patient: Des CHAVESrm Provider: Jessica watts [facility] :1995 A ge:29 Y S ex:Male Date:12/06/2024 Address:[address] [place] [phone] Pcp:Hung Ludwig Subjective: * Chief Complaints: * 1 . Office ; intake. * HPI: G eneral: Location of provider: Location of patient: [facility] for telehealth visit:. * Medical History: Objective: * Vitals: Assessment: Plan: * Treatment: * Images: Billing Information: * Visit Code: * Procedure Codes: * Electronic signature of Serafin middleton [facility] on 03/09/2025 at 01:47 PM EDT Sign off status: Pending * Provider: Jessica watts [facility] Date: 0 12/06/2024 Generated for Galileo Marcus/Chely on: 0 03/09/2025 01:47 PM EDT
[2025-03-09 11:33] VITALS: BP 107/61; PULSE 67; RESP 20; TEMP 36.5; O2SAT 98; BMI 23.5
--- NOTE | 2025-03-09 13:35 | ED_ITS ---
HPI - Skin/Abscess/Foreign Bdy General Chief complaint: Skin/Abscess/Foreign Body Stated complaint: bump on neck Time Seen by Provider: 03/09/25 13:19 Source: patient and RN notes reviewed Mode of arrival: ambulatory Limitations: no limitations History of Present Illness ED Provider: Casie Owen PA-C HPI narrative: This is a 30-year-old male who presents emergency department for evaluation of lumps on the left side of his neck. Patient states that he noticed 2 lumps on the left side of his neck for the last 3 weeks. Supervised due patient reports that he went to a emergency department in [place] 1 week ago and was told to get as area rechecked if it does not go away in 1 week. Patient states that he is feeling well. Denies any recent illness. He denies any fevers, chills, chest pain, shortness of breath, difficulty swallowing, sore throat, ear pain, abdominal pain, nausea, vomiting or diarrhea. He denies any changes in weight, or night sweats. No other complaints or concerns at this time. Onset (ago): week(s) Location: neck Quality: aching Relieving factors: none Exacerbating factors: none Context: none Treatments prior to arrival: none Related Data Previous Rx's ?Medication ?Instructions ?Recorded ibuprofen 600 mg tablet 600 mg PO TID PRN pain (scal e 01/12/22 score 1-3) #30 tabs Allergies Allergy/AdvReac Type Severity Reaction Status Date / Time No Known Allergies Allergy Verified 03/09/25 11:36 Review of Systems Review of Systems: Yes all other systems are reviewed and are negative Constitutional: Constitutional: Reports as per [facility] Social History Social History Household Members: Family Housing: House Do you presently have visiting nurse or other home services: No Alcohol intake: current Patient Tobacco Use Status: Never used Tobacco Smoked in Last 30 Days: No Use of substances other than those prescribed or required for medical reasons: Yes Substance Use Type: Marijuana Advance Directives: No Advance Directives Information Provided: Yes Do you have a plan to hurt others: No Plan service: No Current occupational status: unemployed Physical Exam Vital Signs: Vital Signs: Last Vital Signs Temp 97.9 F 03/09/25 14:05 Pulse 66 03/09/25 14:05 Resp 18 03/09/25 14:05 BP 106/66 03/09/25 14:05 Pulse Ox 98 03/09/25 14:05 O2 Del Method Room Air 03/09/25 14:05 BMI result Body Mass Index 23.5 Const: Other: General: Awake, alert, and oriented X3. No acute distress. HEENT: Left neck, with posterior lymphadenopathy. He has 2 small lymph nodes, that are mobile, nontender, proximally pea sized. No surrounding erythema or ed olinda. CVS: Normal heart rate and rhythm. Pulses normal. Respiratory: No respiratory distress Skin: Warm, dry, no rashes noted to exposed skin. Normal skin color. Normal skin turgor. Extremities: Normal to inspection Neuro: Oriented X 3. No motor deficit. No sensory deficit. Medical Decision Making Medical Decision Making [facility] Narrative: This is a 30-year-old male who presents emergency department with concerns of left neck lumps. On arrival, vital signs within normal limits, patient has to mobile masses noted on the area of the posterior lymphadenopathy chain. They are concerning for lymph nodes. I discussed this with patient. Advised patient that they should resolve after several more weeks encouraged to stop touching the area as patient has been rubbing area since he has been in the emergency room. He does have an appointment with his primary care physician on Monday. Advised that at this time he is otherwise feeling well, has no other concerning signs or symptoms, further workup, blood work is not indicated at this time. Advised that he may need to have these biopsied if they do not resolve. Given strict return precautions, patient stable for discharge. Differential Diagnosis Differential Diagnoses: The differential diagnosis associated with the presentation includes lymphadenopathy, abscess, cyst Discharge Plan Discharge Clinical Impression: Posterior cervical adenopathy Patient Disposition: Home, Self-Care Instructions: Lymphadenopathy (ED) Additional Instructions: You were seen in the emergency department due to concerns of 2 lumps on your left side of your neck. These are consistent with swollen lymph nodes. These can take 8-12 weeks for these to fully resolved. Try to avoid touching this region as this can cause enlargement of the lymph nodes. This can be a normal finding. This may be caused due to a virus. Please follow-up with your primary care physician as scheduled on Monday. If this does not go away for several weeks, you may need to have a biopsy however your primary care physician can help arrange this if it is warranted. If any new or worsening symptoms occur including but not limited to severe chest pain, shortness for breath, difficulty swallowing, please return for re- evaluation. Prescriptions: No Action ibuprofen 600 mg tablet 600 mg PO TID MDD 1800 PRN (Reason: pain (scale score 1-3)) Qty: 30 0RF Interventions: ED Discharge Assessment Last Done: 03/09/25 14:05 Discharge Date/Time: 03/09/25 14:05 Print Language: Albanian
[2025-03-09 14:03] VITALS: BP 106/66; PULSE 66; RESP 18; TEMP 36.6; O2SAT 98
[2025-03-09 14:05] VITALS: BP 106/66; PULSE 66; RESP 18; TEMP 36.6; O2SAT 98
== END 2025-03-09 14:05 | disposition home or self-care (01) ==
PROVIDERS: Emergency Provider Emergency Medicine
DX: R59.0 Localized enlarged lymph nodes (principal)
CPT/HCPCS: 99282; 99284

== ENCOUNTER 2025-07-22 17:39 | Emergency (ER) | payer MEDICAID, SELFPAY ==
--- OUTSIDE RECORDS SUMMARY | 2024-12-06 08:00 | XMS_ITS ---
Author Organization [facility] Address [address] [place] [phone] Care Team Providers Care Dumb Waiter Operator Name Role Phone Hung Ludwig Primary Care Provider [phone] [facility], Nursing [facility] [phone] REASON FOR VISIT office ; intake Social History Sex Assigned At : Social History Observation Description Sex Assigned At Male Encounters Encounter Location Date Provider Diagnosis [address] [phone] 12/06/2024 Nursing [facility] Assessments Encounter Date Diagnosis (ICD Code) Assessment Notes Treatment Notes Treatment Clinical Notes Section Notes 12/06/2024 Other Time spent in visit: minutes Covid verbal screening negative. Plan Of Treatment Treatment Notes Assessment Notes Other Time spent in visit: minutes Covid verbal screening negative. Next Appt Details Provider Name:Hung Angelique ragland, 06/11/2026 10:00:00 AM, [address] [place] [address], [phone], Progress Notes * Aide CHRISTIANSENDOB: [birth year] (30 yo M)Acc No.[id number]:12/06/2024 Progress Notes Patient: Lilia THAKKAR Aide Provider: Jessica watts [facility] :1995 A ge:29 Y S ex:Male Date:12/06/2024 Address:[address] [place] [address], mailing [address] [place] [phone] Pcp:Hung Ludwig Subjective: * Chief Complaints: * 1 . Office ; intake. * HPI: G eneral: Location of provider: Location of patient: [facility] for telehealth visit:. * Medical History: Objective: * Vitals: Assessment: Plan: * Treatment: * Images: Billing Information: * Visit Code: * Procedure Codes: * Electronic signature of Serafin middleton [facility] on 07/22/2025 at 07:44 PM EST Sign off status: Pending * Provider: Jesisca watts [facility] Date: 0 12/06/2024 Generated for Galileo Marcus/Chely on: 1 09/21/2024 07:44 PM EST
--- OUTSIDE RECORDS SUMMARY | 2025-04-23 04:00 | XMS_ITS ---
Author Organization [facility] Address [address] [place] [phone] Care Team Providers Care [place] Boatman Name Role Phone Hung Ludwig Primary Care Provider REASON FOR VISIT Office: Establish care Social History Sex Assigned At : Social History Observation Description Sex Assigned At Male Encounters Encounter Location Date Provider Diagnosis [address] [phone] 04/23/2025 Hung Ludwig Encounter for screening for COVID-19 Z11.52 Assessments Encounter Date Diagnosis (ICD Code) Assessment Notes Treatment Notes Treatment Clinical Notes Section Notes 04/23/2025 Encounter for screening for COVID-19 (ICD-10 - Z11.52) Covid screening is negative. Discussed in detail with patient how to practice social distancing by avoiding public spaces and crowds now, wearing a mask in public to keep nose and mouth covered, and washing hands frequently especially before eating and after using the bathroom. Return to clinic if you develop any symtpoms of concern to be rescreened or go to the emergency room if you are having concerning symptoms for COVID-19. 04/23/2025 Other Plan Of Treatment Treatment Notes Assessment Notes Encounter for screening for COVID-19 Cov id screening is negative. Discussed in detail with patient how to practice social distancing by avoiding public spaces and crowds now, wearing a mask in public to keep nose and mouth covered, and washing hands frequently especially before eating and after using the bathroom. Return to clinic if you develop any symtpoms of concern to be rescreened or go to the emergency room if you are having concerning symptoms for COVID-19. Next Appt Details Provider Name:Hung ragland, 06/11/2026 10:00:00 AM, [address] [place] [address], [phone], Progress Notes * Aide CHRISTIANSENDOB: [birth year] (30 yo M)Acc No.[id number]:04/23/2025 Progress Notes Patient: Aide CHAVES Provider: NATTY Salas :1995 A ge:30 Y S ex:Male Date:04/23/2025 Address:[address] [place] [address], mailing [address] [place] [phone] Subjective: * Chief Complaints: * 1 . Office: [facility] care. * HPI: G eneral: Symptom Screen: - Fever in the last 1 week? Patient denies - New or worsening cough in the last 1 week? Patient denies. - Contact will known COVID exposure in last 5 days? Patient denies -new rash within last 3 weeks? Patient denies - Have you received the COVID-19 vaccine? - Have you received COVID-19 booster? - Have you been tested positive for COVID -19 in the last 7 days? If so where and why? RN/MA:. * ROS: N o acute C/P no acute SOB, No problem with urine, No heartburn or abdominal pain. Endorses being able to climb one fight of stairs without stopping due to SOB, Mood: stable, appetite: good, sleeping well. Denies new skin rashes. * Medical History: A sthma. * Hospitalization/Major Diagno stic Procedure: [facility] - Left sided pneumothroax 12/2021. * Family History: M other: unknown. F ather: unknown. 1 son(s) - healthy. . Does not know family hx. * Social History: H ousing/living arrangements: 02/2025: Doubled up with friend in [place], [place]. S Bibi Screening Entered Date 0 03/14/2025 How is this screening being conducted today? B y phone What is your housing situation today? I do not have housing (staying with others, in a hotel, in a half-way, living outside on the street, on a beach, in a car or in a park) Think about the place you live. Do you have problems with any of the following? (Check all that apply) N one of the above Within the past 12 months, you worried that your food would run out before you got money to buy more N ever true Within the past 12 months, the food you bought just didn't last and you didn't have enough money to get more N ever true In the past 12 months, has lack of transportation kept you from medical appointments, meetings, work or from getting things needed for daily living? (Check all that apply) Y es, it has kept me from medical appointments or getting medications, Yes, it has kept me from non-medical meetings, appointments, work, or getting things that I need In the past 12 months has the electric, gas, oil, or water company threatened to shut off services in your home? N o Think about the place you live. Do you have access to internet/wi-fi when you need it? Y es T obacco Use Assessment MU Annual Tobacco assessment completed 0 03/14/2025 nonsmoker Tobacco assessment completed 0 03/14/2025 D rug use Date of history: 0 03/14/2025 Daily THC use Age of very first drug use [age] Drug used C annabis (Marijuana) Route (s) of drug s moked Pattern of drug use D aily Last use or first drug 0 -2024 O piate Use Hx Ever taken opiates N o Denies A lcohol Use: 02/2025: Denies. S exual Orientation Heterosexual 0 03/14/2025 S exual Health history Sexual History completed on: 0 03/14/2025 Identifies as currently having sexual contact Y es Identifies sexual preference as W omen Number of sexual partners in the last year 1 If one partner in the last year, length of relationship g reater than one year Number of lifetime sexual partners o ne to three What types of protection do you use with your partner(s) against STI/ c ondoms media aid Last tested for STIs T ested greater than one year ago Offered STI testing today 0 03/14/2025 Hx of being treated for syphillis? N o M ental Health: 02/2025: Denies engagement in services or interest at time of intake. 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 I ncome: 02/2025: No income. L egal issues/Incarcerations: 02/2025: Denies. P CP/last visit: 02/2025: 16-17 years ago, can not recall office of last PCP office. T ransportation: 02/2025: Uses [employer]. M arital Status: 02/2025: Single. N ext of Kin/Emerg. Contact & Community Supports: see info section. C urmilaerendira experience In fostercare/DYS for a portion of childhood N o Victim of physical abuse N o Victim of sexual abuse N o Adults at home using drugs/drinking excessivly N o Witness to violence/DV in childhood N o C urmiladren: 02/2025: 1 son. R josé antonio: 02/2025: None. T BI screening/Head injury Hx: 02/2025:, Patient can not recall any times in which he/she experienced sig blow to the head (fall, blast, collision). S ocial hx: 02/2025: Born in and grew up in [place], [place] with Mom. Objective: * Vitals: Assessment: * Assessment: 1. E ncounter for screening for COVID-19 - Z11.52 (Primary) Plan: * Treatment: * Images: Billing Information: * Visit Code: * Procedure Codes: Care Plan Details* * Electronic signature of Dmitri Ludwig on 07/22/2025 at 07:44 PM EST Sign off status: Pending * Provider: NATTY Salas Date: 0 04/23/2025 Generated for Galileo caballero/Anisha/Chely on: 1 09/21/2024 07:44 PM EST
--- OUTSIDE RECORDS SUMMARY | 2025-07-22 04:06 | XMS_ITS ---
Author Organization [facility] Address [address] [place] [phone] Care Team Providers Care Dental Intern Name Role Phone Hung Ludwig Primary Care Provider REASON FOR VISIT Refill Social History Sex Assigned At : Social History Observation Description Sex Assigned At Male Encounters Encounter Location Date Provider Diagnosis [address] [phone] 07/22/2025 Hung Ludwig Plan Of Treatment Next Appt Details Provider Name:Hung Merino ellyn, 06/11/2026 10:00:00 AM, [address] [place] [address], [phone], Progress Notes * Jia CHRISTIANSENB: [birth year] (30 yo M)Acc No.[id number]:07/22/2025 Patient: Aide CHAVES :1995 A ge:30 Y S ex:Male Address:[address] [place] [address], [phone] * true * Date: Generated for Marylui ada/Anisha/eTransmitting on: 09/21/2024 07:44 PM EST
--- NOTE | 2025-07-22 17:49 | ED_ITS ---
HPI - General Adult General Chief complaint: Upper Respiratory Symptoms Stated complaint: Asthma Time Seen by Provider: 07/22/25 19:14 Source: patient Mode of arrival: ambulatory Limitations: no limitations History of Present Illness ED Provider: Dr. Hodge [facility] narrative: 30-year-old male history of asthma presented hospital today for evaluation of refill for his albuterol inhaler. Patient stated he had recent illness for past 3 days. He stated that he has has been wheezing. He called his primary care doctor for inhaler. However they stated that it will take some time therefore he presents to ER for evaluation. Related Data Previous Rx's ?Medication ?Instructions ?Recorded ibuprofen 600 mg tablet 600 mg PO TID PRN pain (scal e 01/12/22 score 1-3) #30 tabs prednisone 20 mg tablet 40 mg (2 x 20 mg) PO DAILY 5 days 07/22/25 #10 tabs Allergies Allergy/AdvReac Type Severity Reaction Status Date / Time No Known Allergies Allergy Verified 07/22/25 17:52 Review of Systems Review of Systems: Pertinent review of systems as mentioned in HPI. All other system otherwise negative. [facility] Past Medical History [facility] Narrative: Asthma Social History Social History Household Members: Family Housing: House Do you presently have visiting nurse or other home services: No Alcohol intake: current Patient Tobacco Use Status: Never used Tobacco Substance Use Type: Marijuana Advance Directives: No Advance Directives Information Provided: No service: No Current occupational status: unemployed Physical Exam ED Exam Exam: General: Pleasant, no distress, interacting appropriately Head: Normacephalic, atraumatic ENT: oral mucosa moist, neck supple, no tracheal deviation Cardiovascular: regular rate, regular rhythm, no murmurs, rubbing, gallops Respiratory: Wheezing bilaterally Skin: Warm and dry Psychiatric: Appropriate mood and thoughts Vital Signs: Vital Signs - 24 hr 07/22/25 17:51 07/22/25 19:17 07/22/25 19:21 Temperature 98.2 F 97.9 F Pulse Rate 89 84 84 Respiratory Rate 18 16 16 Blood Pressure 90/56 L 112/64 112/64 Pulse Oximetry 94 96 96 Oxygen Delivery Method Room Air Room Air Room Air BMI result Body Mass Index 21.6 Course Course Course Narrative: This is a rapid medical exam performed by Modesta Andrews NP: Additional HPI, ROS, PE not included below will be deferred to primary provider. Patient is a 30y/o M with pmhx of asthma presenting with 3 days of shortness of breath after a cold. Denies chest pain. Using inhaler but ran out. Plan: viral swabs Medical Decision Making Medical Decision Making MDM Narrative: 30-year-old male presented hospital today for evaluation of albuterol inhaler refill. Patient is requesting to leave at this time stated that pharmacy has refill his albuterol. We will plan to send the patient home with some prednisone to take as well. Encouraged him to follow up with primary care doctor. Patient is not hypoxic not tachypneic. I do not think patient is at risk for respiratory distress at this time. Patient will be discharged Differential Diagnosis Differential Diagnoses: The differential diagnosis associated with the presentation includes Asthma, upper respiratory infection Discharge Plan Discharge Clinical Impression: Upper respiratory infection, Asthma Patient Disposition: Home, Self-Care Instructions: Asthma (ED) Prescriptions: New prednisone 20 mg tablet 40 mg PO DAILY 5 Days Qty: 10 0RF No Action ibuprofen 600 mg tablet 600 mg PO TID MDD 1800 PRN (Reason: pain (scale score 1-3)) Qty: 30 0RF Interventions: ED Discharge Assessment Last Done: 07/22/25 19:21 Discharge Date/Time: 07/22/25 19:24 Print Language: Maori
[2025-07-22 17:51] VITALS: BP 90/56; PULSE 89; RESP 18; TEMP 36.8; O2SAT 94; BMI 21.6
[2025-07-22 19:17] VITALS: BP 112/64; PULSE 84; RESP 16; O2SAT 96
[2025-07-22 19:21] VITALS: BP 112/64; PULSE 84; RESP 16; TEMP 36.6; O2SAT 96
--- OUTSIDE RECORDS SUMMARY | 2025-07-22 19:44 | XMS_ITS | Encounter Summary ---
Author Organization [facility] Address [address] [place] [address] Care Team Providers Care Airworthiness Safety Inspector Name Role Phone Hung Ludwig STEAMBOAT CAPTAIN Primary Care Provider [phone]- [phone] Encounter Details Date Type Department Care Team (Late st Contact Info) Description 06/03/2025 Lab Requisition [facility] - Main Lab [address] [place] [id number] Hung Ludwig NP [address] [place] [address] Localized enlarged lymph nodes Social History Tobacco Use Types Packs/Day Years Used Date Smoking Tobacco: Never Assessed Sex and Gender Information Value Date Recorded Sex Assigned at Not on file Legal Sex Male 3:10 PM EST Gender Identity Not on file Sexual Orientation Not on file documented as of this encounter Plan of Treatment Not on file documented as of this encounter Procedures Procedure Name Priority Date/Time Associated Diagnosis Comments STANLEY FATIMA VIRUS IGG, IGM, NUCLEAR AND EARLY ANTIBODIES Routine 06/03/2025 9:52 AM EDT Localized enlarged lymph nodes CBC WITH AUTO DIFFERENTIAL Routine 06/03/2025 9:52 AM EDT Localized enlarged lymph nodes CBC AND DIFFERENTIAL Routine 06/03/2025 9:52 AM EDT Localized enlarged lymph nodes LACTATE DEHYDROGENASE Routine 06/03/2025 9:52 AM EDT Localized enlarged lymph nodes documented in this encounter Results * CBC auto differential (06/03/2025 9:52 AM EDT) WBC 4.9 4.8 - 10.8 K/mcL LAB HEMETOLOGY METHOD 06/03/2025 6:04 PM [facility] RBC 4.70 4.50 - 5.50 M/mcL LAB HEMETOLOGY METHOD 06/03/2025 6:04 PM [facility] Hemoglobin 14.4 13.5 - 17.5 g/dL LAB HEMETOLOGY METHOD 06/03/2025 6:04 PM [facility] Hematocrit 43.2 42.0 - 54.0 % LAB HEMETOLOGY METHOD 06/03/2025 6:04 PM [facility] MCV 92.1 79.0 - 98.0 FL LAB HEMETOLOGY METHOD 06/03/2025 6:04 PM [facility] MCH 30.7 27.0 - 32.0 pcg LAB HEMETOLOGY METHOD 06/03/2025 6:04 PM [facility] MCHC 33.3 32.0 - 37.0 g/dL LAB HEMETOLOGY METHOD 06/03/2025 6:04 PM [facility] RDW 11.9 11.0 - 15.0 % LAB HEMETOLOGY METHOD 06/03/2025 6:04 PM [facility] Platelets 202 130 - 400 K/mcL LAB HEMETOLOGY METHOD 06/03/2025 6:04 PM [facility] MPV 10.8 7.0 - 11.0 FL LAB HEMETOLOGY METHOD 06/03/2025 6:04 PM [facility] NRBC 0.0 <1.0 % LAB HEMETOLOGY METHOD 06/03/2025 6:04 PM [facility] NRBC Absolute 0.00 <0.10 K/mcL LAB HEMETOLOGY METHOD 06/03/2025 6:04 PM [facility] Neutrophils Relative 56.2 % LAB HEMETOLOGY METHOD 06/03/2025 6:04 PM [facility] Lymphocytes Relative 32.2 % LAB HEMETOLOGY METHOD 06/03/2025 6:04 PM [facility] Monocytes Relative 9.0 % LAB HEMETOLOGY METHOD 06/03/2025 6:04 PM [facility] Eosinophils Relative 1.6 % LAB HEMETOLOGY METHOD 06/03/2025 6:04 PM [facility] Basophils Relative 0.8 % LAB HEMETOLOGY METHOD 06/03/2025 6:04 PM [facility] Immature Granulocytes Relative 0.2 % LAB HEMETOLOGY METHOD 06/03/2025 6:04 PM [facility] Neutrophils Absolute 2.74 1.50 - 7.00 K/mcL LAB HEMETOLOGY METHOD 06/03/2025 6:04 PM [facility] Lymphocytes Absolute 1.57 1.00 - 5.00 K/mcL LAB HEMETOLOGY METHOD 06/03/2025 6:04 PM [facility] Monocytes Absolute 0.44 0.20 - 1.00 K/mcL LAB HEMETOLOGY METHOD 06/03/2025 6:04 PM [facility] Eosinophils Absolute 0.08 0.00 - 0.50 K/mcL LAB HEMETOLOGY METHOD 06/03/2025 6:04 PM [facility] Basophils Absolute 0.04 0.00 - 0.20 K/mcL LAB HEMETOLOGY METHOD 06/03/2025 6:04 PM [facility] Immature Granulocytes Absolute 0.01 0.00 - 0.03 K/mcL LAB HEMETOLOGY METHOD 06/03/2025 6:04 PM [facility] Blood Venous blood specimen / Unknown 06/03/2025 9:52 AM EDT 06/03/2025 4:59 PM EDT Hung Ludwig STEAMBOAT CAPTAIN LAB BLOOD ORDERABLES Final Result Performing Organization Address [facility] Co de Phone Number [facility] [address] [place] [address], [place] [phone] * (ABNORMAL) Stanley fatima virus IgG, IgM, nuclear and early antibodies (06/03/2025 9:52 AM EDT) [facility] EBV VCA IgG Positive(A) Negative LAB CHEMISTRY METHOD 06/04/2025 10:28 AM EDT [facility] EBV VCA IgM Negative Negative LAB CHEMISTRY METHOD 06/04/2025 10:28 AM EDT [facility] EBV Nuclear Ag Ab Positive(A) Negative LAB CHEMISTRY METHOD 06/04/2025 10:28 AM EDT [facility] EBV Early Ag Ab Positive(A) Negative LAB CHEMISTRY METHOD 06/04/2025 10:28 AM EDT [facility] Blood Venous blood specimen / Unknown 06/03/2025 9:52 AM EDT 06/03/2025 4:59 PM EDT Narrative [facility] - 06/04/2025 10:28 AM EDT Suggestive of a past Stanley-Fatima Virus infection. Hung Ludwig STEAMBOAT CAPTAIN LAB BLOOD ORDERABLES Final Result Performing Organization Address [facility] Co de Phone Number [facility] [address] [place] [address], [place] [phone] * Lactate dehydrogenase (06/03/2025 9:52 AM EDT) [facility] LDH 164 120 - 246 unit/L LAB CHEMISTRY METHOD 06/03/2025 6:50 PM EDT [facility] Blood Venous blood specimen / Unknown 06/03/2025 9:52 AM EDT 06/03/2025 4:59 PM EDT Hung Ludwig STEAMBOAT CAPTAIN LAB BLOOD ORDERABLES Final Result [facility] ([facility] [address] [place] [address], documented in this encounter Visit Diagnoses Diagnosis Localized enlarged lymph nodes documented in this encounter Care Teams Airworthiness Safety Inspector Relationship Specialty Start Date End Date Hung Ludwig NP [address] [place] [address] PCP - General Family Medicine 03/19/25 documented as of this encounter
--- OUTSIDE RECORDS SUMMARY | 2025-07-22 19:44 | XMS_ITS | Encounter Summary ---
Author Organization [facility] Address [address] [place] [address] Care Team Providers Care Hospitality Aide Name Role Phone Hung Ludwig INSIDE SALES REPRESENTATIVE Primary Care Provider [phone] Encounter Details Date Type Department Care Team (Late st Contact Info) Description 03/19/2025 Lab Requisition [facility] Main Lab [address] [facility] [place] [id number] Hung Ludwig NP [address] [place] [address] Encounter for screening for cardiovascular disorders; Encounter for screening for infections with a predominantly sexual mode of transmission; Encounter for screening for infectious and parasitic diseases, unspecified; Encounter for screening for other suspected endocrine disorder Social History Tobacco Use Types Packs/Day Years [...] Procedure Name Priority Date/Time Associated Diagnosis Comments HEPATITIS C ANTIBODY Routine 03/19/2025 9:23 AM EDT Encounter for screening for cardiovascular disorders Encounter for screening for infections with a predominantly sexual mode of transmission Encounter for screening for infectious and parasitic diseases, unspecified Encounter for screening for other suspected endocrine disorder HIV 1, 2 ANTIBODY, P24 ANTIGEN WITH REFLEX TO DIFFERENTIATION Routine 03/19/2025 9:23 AM EDT Encounter for screening for cardiovascular disorders Encounter for screening for infections with a predominantly sexual mode of transmission Encounter for screening for infectious and parasitic diseases, unspecified Encounter for screening for other suspected endocrine disorder HEPATITIS B SURFACE ANTIGEN WITH CONFIRMATION Routine 03/19/2025 9:23 AM EDT Encounter for screening for cardiovascular disorders Encounter for screening for infections with a predominantly sexual mode of transmission Encounter for screening for infectious and parasitic diseases, unspecified Encounter for screening for other suspected endocrine disorder TREPONEMA PALLIDUM ANTIBODY WITH REFLEX TO RPR AND PARTICLE AGGLUTINATION Routine 03/19/2025 9:23 AM EDT Encounter for screening for cardiovascular disorders Encounter for screening for infections with a predominantly sexual mode of transmission Encounter for screening for infectious and parasitic diseases, unspecified Encounter for screening for other suspected endocrine disorder THYROID STIMULATING HORMONE WITH REFLEX TO FREE T4 AND FREE T3 Routine 03/19/2025 9:23 AM EDT Encounter for screening for cardiovascular disorders Encounter for screening for infections with a predominantly sexual mode of transmission Encounter for screening for infectious and parasitic diseases, unspecified Encounter for screening for other suspected endocrine disorder SST - GOLD Routine 03/19/2025 9:23 AM EDT Encounter for screening for cardiovascular disorders Encounter for screening for infections with a predominantly sexual mode of transmission Encounter for screening for infectious and parasitic diseases, unspecified Encounter for screening for other suspected endocrine disorder SST - GOLD Routine 03/19/2025 9:23 AM EDT Encounter for screening for cardiovascular disorders Encounter for screening for infections with a predominantly sexual mode of transmission Encounter for screening for infectious and parasitic diseases, unspecified Encounter for screening for other suspected endocrine disorder LIPID PANEL WITH REFLEX TO DIRECT LDL Routine 03/19/2025 9:23 AM EDT Encounter for screening for cardiovascular disorders Encounter for screening for infections with a predominantly sexual mode of transmission Encounter for screening for infectious and parasitic diseases, unspecified Encounter for screening for other suspected endocrine disorder CHLAMYDIA TRACHOMATIS AND NEISSERIA GONORRHOEAE PCR Routine 03/19/2025 9:23 AM EDT Encounter for screening for cardiovascular disorders Encounter for screening for infections with a predominantly sexual mode of transmission Encounter for screening for infectious and parasitic diseases, unspecified Encounter for screening for other suspected endocrine disorder HEPATITIS B CORE ANTIBODY, TOTAL Routine 03/19/2025 9:23 AM EDT Encounter for screening for cardiovascular disorders Encounter for screening for infections with a predominantly sexual mode of transmission Encounter for screening for infectious and parasitic diseases, unspecified Encounter for screening for other suspected endocrine disorder HEPATITIS B SURFACE ANTIBODY Routine 03/19/2025 9:23 AM EDT Encounter for screening for cardiovascular disorders Encounter for screening for infections with a predominantly sexual mode of transmission Encounter for screening for infectious and parasitic diseases, unspecified Encounter for screening for other suspected endocrine disorder COMPLETE BLOOD COUNT Routine 03/19/2025 9:23 AM EDT Encounter for screening for cardiovascular disorders Encounter for screening for infections with a predominantly sexual mode of transmission Encounter for screening for infectious and parasitic diseases, unspecified Encounter for screening for other suspected endocrine disorder COMPREHENSIVE METABOLIC PANEL Routine 03/19/2025 9:23 AM EDT Encounter for screening for cardiovascular disorders Encounter for screening for infections with a predominantly sexual mode of transmission Encounter for screening for infectious and parasitic diseases, unspecified Encounter for screening for other suspected endocrine disorder documented in this encounter Results * SST tube (03/19/2025 9:23 AM EDT) Extra Tube Hold for add-ons. 03/19/2025 7:01 PM EDT [facility] Comment:Auto resulted. Blood Venous blood specimen / Unknown 03/19/2025 9:23 AM EDT 03/19/2025 5:29 PM EDT us Eddicierra Ludwig INSIDE SALES REPRESENTATIVE LAB BLOOD ORDERABLES Final Result [facility] [address] [place] [address], * SST tube (03/19/2025 9:23 AM EDT) Extra Tube Hold for add-ons. 03/19/2025 7:01 PM EDT [facility] Comment:Auto resulted. Blood Venous blood specimen / Unknown 03/19/2025 9:23 AM EDT 03/19/2025 5:29 PM EDT Hung Ludwig LAB BLOOD ORDERABLES Final Result Performing Organization Address [facility] Co de Phone Number [facility] [address] [place] [address], [place] [phone] * Hepatitis C antibody (03/19/2025 9:23 AM EDT) [facility] Hepatitis C Antibody Negative Negative LAB CHEMISTRY METHOD 03/19/2025 7:13 PM EDT [facility] Blood Venous blood specimen / Unknown 03/19/2025 9:23 AM EDT 03/19/2025 5:29 PM EDT [facility] LAB BLOOD ORDERABLES Final Result Performing Organization Address [facility] de Phone Number [facility] [address] [place] [address], [place] [phone] * Treponema pallidum antibody with reflex to RPR and particle agglutination (03/19/2025 9:23 AM EDT) [facility] T. Pallidum Antibodies Negative Negative LAB CHEMISTRY METHOD 03/19/2025 8:11 PM EDT [facility] Blood Venous blood specimen / Unknown 03/19/2025 9:23 AM EDT 03/19/2025 5:29 PM EDT [facility] LAB BLOOD ORDERABLES Final Result Performing Organization Address [facility]/ZIP Co de Phone Number [facility] [address] [place] [address], [place] [phone] * (ABNORMAL) Comprehensive metabolic panel (03/19/2025 9:23 AM EDT) Sodium 140 133 - 145 mmol/L LAB CHEMISTRY METHOD 03/19/2025 6:07 PM [facility] Potassium 4.2 3.5 - 5.5 mmol/L LAB CHEMISTRY METHOD 03/19/2025 6:07 PM [facility] Chloride 111(H) 96 - 110 mmol/L LAB CHEMISTRY METHOD 03/19/2025 6:07 PM [facility] CO2 25 21 - 32 mmol/L LAB CHEMISTRY METHOD 03/19/2025 6:07 PM [facility] Anion Gap 4 3 - 11 LAB CHEMISTRY METHOD 03/19/2025 6:07 PM [facility] Glucose 89 70 - 100 mg/dL LAB CHEMISTRY METHOD 03/19/2025 6:07 PM [facility] BUN 17 5 - 25 mg/dL LAB CHEMISTRY METHOD 03/19/2025 6:07 PM [facility] Creatinine 1.15 0.70 - 1.30 mg/dL LAB CHEMISTRY METHOD 03/19/2025 6:07 PM [facility] eGFR 88 >=60 mL/min/1. 73m2 LAB CHEMISTRY METHOD 03/19/2025 6:07 PM [facility] Comment:Calculation based on the Chronic Kidney Disease Epidemiology Collaboration (CKD-EPI) equation refit without adjustment for race. BUN/Creatinine Ratio 14.8 LAB CHEMISTRY METHOD 03/19/2025 6:07 PM [facility] Calcium 9.0 8.5 - 10.5 mg/dL LAB CHEMISTRY METHOD 03/19/2025 6:07 PM [facility] AST (SGOT) 24 10 - 42 unit/L LAB CHEMISTRY METHOD 03/19/2025 6:07 PM [facility] ALT (SGPT) 28 10 - 60 unit/L LAB CHEMISTRY METHOD 03/19/2025 6:07 PM [facility] Alkaline Phosphatase 78 42 - 121 unit/L LAB CHEMISTRY METHOD 03/19/2025 6:07 PM EDT [facility] Total Protein 7.4 6.0 - 8.0 g/dL LAB CHEMISTRY METHOD 03/19/2025 6:07 PM EDT [facility] Albumin 4.1 3.2 - 5.0 g/dL LAB CHEMISTRY METHOD 03/19/2025 6:07 PM EDT [facility] Total Bilirubin 1.0 0.0 - 1.4 mg/dL LAB CHEMISTRY METHOD 03/19/2025 6:07 PM EDT [facility] Blood Venous blood specimen / Unknown 03/19/2025 9:23 AM EDT 03/19/2025 5:29 PM EDT us Hung Ludwig INSIDE SALES REPRESENTATIVE LAB BLOOD ORDERABLES Final Result Performing Organization Address City/[facility]/ZIP Co de Phone Number [facility] [address] [place] [address], [place] [phone] * Thyroid stimulating hormone with reflex to free t4 and free t3 (03/19/2025 9:23 AM EDT) Pathologist [facility] TSH 2.16 0.40 - 4.00 mcIU/mL LAB CHEMISTRY METHOD 03/19/2025 8:00 PM EDT [facility] Blood Venous blood specimen / Unknown 03/19/2025 9:23 AM EDT 03/19/2025 5:29 PM EDT us Eddielipatrick Ludwig INSIDE SALES REPRESENTATIVE LAB BLOOD ORDERABLES Final Result [facility] [address] [place] [address], [place] [phone] * Lipid panel with reflex to direct LDL (03/19/2025 9:23 AM EDT) Cholesterol 130 0 - 200 mg/dL LAB CHEMISTRY METHOD 03/19/2025 6:07 PM EDT [facility] Triglycerides 60 0 - 150 mg/dL LAB CHEMISTRY METHOD 03/19/2025 6:07 PM EDT [facility] HDL 50 >=40 mg/dL LAB CHEMISTRY METHOD 03/19/2025 6:07 PM EDT [facility] LDL Calculated 68 0 - 100 mg/dL LAB CHEMISTRY METHOD 03/19/2025 6:07 PM EDT [facility] VLDL Cholesterol Wale 12 mg/dL LAB CHEMISTRY METHOD 03/19/2025 6:07 PM EDT [facility] Non HDL Chol. (LDL+VLDL) 80 <145 mg/dL LAB CHEMISTRY METHOD 03/19/2025 6:07 PM EDT [facility] Chol/HDL Ratio 2.6 0.0 - 4.4 LAB CHEMISTRY METHOD 03/19/2025 6:07 PM EDT [facility] Blood Venous blood specimen / Unknown 03/19/2025 9:23 AM EDT 03/19/2025 5:29 PM EDT us Hung Ludwig INSIDE SALES REPRESENTATIVE LAB BLOOD ORDERABLES Final Result [facility] [address] [place] [address], * HIV 1,2 antibody, p24 antigen with reflex to differentiation (03/19/2025 9:23 AM EDT) HIV Combo AB/AG Negative Negative LAB CHEMISTRY METHOD 03/19/2025 7:14 PM EDT [facility] Blood Venous blood specimen / Unknown 03/19/2025 9:23 AM EDT 03/19/2025 5:29 PM EDT Narrative [facility] - 03/19/2025 7:14 PM EDT This assay is a 4th generation assay allowing for earlier detection of HIV infection by detecting the presence of the HIV-1 p24 antigen as well as the traditional antibodies to HIV type 1 (including group O) and type 2. Use of a 4th generation assay is the current CDC recommendation for HIV screening. [facility] LAB BLOOD ORDERABLES Final Result Performing Organization Address [facility] de Phone Number [facility] [address] [place] [address], * Hepatitis B surface antigen with reflex to confirmation (03/19/2025 9:23 AM EDT) Hepatitis B Surface Ag Negative Negative LAB CHEMISTRY METHOD 03/19/2025 6:46 PM EDT [facility] Blood Venous blood specimen / Unknown 03/19/2025 9:23 AM EDT 03/19/2025 5:29 PM EDT Narrative [facility] - 03/19/2025 6:46 PM EDT Over the counter supplements containing high doses of biotin may interfere with this assay. If interference is suspected, patients shoud be retested after refraining from biotin supplements for 72 hours. [email or web address] [facility] LAB BLOOD ORDERABLES Final Result Performing Organization Address [facility] de Phone Number [facility] [address] [place] [address], * (ABNORMAL) Hepatitis B surface antibody (03/19/2025 9:23 AM EDT) Hepatitis B Surface Ab Positive (A) Negative LAB CHEMISTRY METHOD 03/19/2025 6:35 PM EDT [facility] Hepatitis B Surface Ab Quantitative 34.4 mIU/mL LAB CHEMISTRY METHOD 03/19/2025 6:35 PM EDT [facility] Blood Venous blood specimen / Unknown 03/19/2025 9:23 AM EDT 03/19/2025 5:29 PM EDT Narrative [facility] - 03/19/2025 6:35 PM EDT >=10 mIU/mL is considered to be consistent with immunity. Eddielipatrick Goldionan INSIDE SALES REPRESENTATIVE LAB BLOOD ORDERABLES Final Result [facility] [address] [place] [address], * Hepatitis B core antibody, total (03/19/2025 9:23 AM EDT) Hep B Core Total Ab Negative Negative LAB CHEMISTRY METHOD 03/19/2025 7:14 PM EDT [facility] Blood Venous blood specimen / Unknown 03/19/2025 9:23 AM EDT 03/19/2025 5:29 PM EDT Eddicierra Goldionmarina INSIDE SALES REPRESENTATIVE LAB BLOOD ORDERABLES Final Result Performing Organization Address [facility]/ZIP Co de Phone Number [facility] [address] [place] [address], [place] [phone] * Chlamydia trachomatis and Neisseria gonorrhoeae molecular study (03/19/2025 9:23 AM EDT) Neisseria gonorrhoeae PCR Negative Negative LAB MOLECULAR DIAGNOSTICS METHOD 03/20/2025 10:00 AM EDT [facility] Chlamydia trachomatis PCR Negative Negative LAB MOLECULAR DIAGNOSTICS METHOD 03/20/2025 10:00 AM EDT [facility] Urine Urine specimen from urethra / Unknown Non-blood Collection / Unknown 03/19/2025 9:23 AM EDT 03/19/2025 5:29 PM EDT Eddielipatrick Goldionan INSIDE SALES REPRESENTATIVE LAB MICROBIOLOGY - GENERAL ORDERABLES Final Result [facility] [address] [place] [address], * (ABNORMAL) Complete blood count (03/19/2025 9:23 AM EDT) [facility] Signature WBC 4.6(L) 4.8 - 10.8 K/mcL LAB HEMETOLOGY METHOD 03/19/2025 5:42 PM EDT [facility] RBC 4.80 4.50 - 5.50 M/mcL LAB HEMETOLOGY METHOD 03/19/2025 5:42 PM EDT [facility] Hemoglobin 14.7 13.5 - 17.5 g/dL LAB HEMETOLOGY METHOD 03/19/2025 5:42 PM EDT [facility] Hematocrit 43.8 42.0 - 54.0 % LAB HEMETOLOGY METHOD 03/19/2025 5:[facility] MCV 90.7 79.0 - 98.0 FL LAB HEMETOLOGY METHOD 03/19/2025 5:42 PM [facility] MCH 30.4 27.0 - 32.0 pcg LAB HEMETOLOGY METHOD 03/19/2025 5:42 PM [facility] MCHC 33.6 32.0 - 37.0 g/dL LAB HEMETOLOGY METHOD 03/19/2025 5:42 PM EDT [facility] RDW 11.8 11.0 - 15.0 % LAB HEMETOLOGY METHOD 03/19/2025 5:42 PM EDT [facility] Platelets 218 130 - 400 K/mcL LAB HEMETOLOGY METHOD 03/19/2025 5:42 PM [facility] MPV 10.8 7.0 - 11.0 FL LAB HEMETOLOGY METHOD 03/19/2025 5:42 PM [facility] NRBC 0.0 <1.0 % LAB HEMETOLOGY METHOD 03/19/2025 5:42 PM EDT [facility] NRBC Absolute 0.00 <0.10 K/mcL LAB HEMETOLOGY METHOD 03/19/2025 5:42 PM EDT [facility] Blood Venous blood specimen / Unknown 03/19/2025 9:23 AM EDT 03/19/2025 5:29 PM EDT us Hung Ludwig NP LAB BLOOD ORDERABLES Final Result [facility] [address] [place] [address], documented in this encounter Visit Diagnoses Diagnosis Encounter for screening for cardiovascular disorders Encounter for screening for infections with a predominantly sexual mode of transmission Encounter for screening for infectious and parasitic diseases, unspecified Encounter for screening for other suspected endocrine disorder documented in this encounter Care Teams Hospitality Aide Relationship Specialty Start Date End Date Hung Ludwig NP [address] [place] [address] PCP - General Family Medicine 03/19/25 documented as of this encounter
--- OUTSIDE RECORDS SUMMARY | 2025-07-22 19:44 | XMS_ITS | Clinical Summary ---
Author Organization [address] [facility] Address [address] [place] [address] Phone Care Team Providers Care Gm Mobile Name Role Phone Hung Ludwig SERVICE COORDINATOR Primary Care Provider [phone]- [phone] Encounters Date Type Department Care Team Description 06/03/2025 Lab Requisition [facility] - Main Lab [address] [place] [address] Hung Ludwig NP Localized enlarged lymph nodes from Last 3 Months Social History Tobacco Use Types Packs/Day Years Used Date Smoking Tobacco: Never Assessed Sex and Gender Information Value Date Recorded Sex Assigned at Not on file Legal Sex Male 3:10 PM EST Gender Identity Not on file Sexual Orientation Not on file Plan of Treatment Health Maintenance Due Date Last Done Comments DTaP,Tdap,and Td Vaccines (1 - Tdap) 01/12/2015 Hepatitis B Vaccines (1 of 3 - 19+ 3-dose series) 01/12/2015 HPV Vaccines (1 - 3-dose SCD M series) 01/12/2023 Depression Screening 08/28/2024 Social Influencers of Health Screening 03/20/2025 COVID-19 Vaccine (1 - 2024-2 6 season) 2025 Influenza Vaccine (#1) 2025 Cholesterol Screening (Lipid Panel) 03/19/2030 03/19/2025 RSV Immunization Adult Patie nts (1 - 1-dose 75+ series) 01/12/2071 HIV Screening Completed 03/19/2025 Hepatitis C Screening Completed 03/19/2025 HIB Vaccines Aged Out No longer eligi ble based on patient's age to complete this topic Hepatitis A Vaccines Aged Out No long er eligible based on patient's age to complete this topic IPV Vaccines Aged Out No longer eligi ble based on patient's age to complete this topic MMR Vaccines Aged Out No longer eligi ble based on patient's age to complete this topic Meningococcal ACWY Vaccine Aged Out N o longer eligible based on patient's age to complete this topic Meningococcal B Vaccine Aged Out No l onger eligible based on patient's age to complete this topic Pneumococcal Vaccine: Pediat rics (0 to 5 Years) and At-Risk Patients (6 to 49 Years) Aged Out No longer eligi ble based on patient's age to complete this topic RSV Immunization Patients Un cristin 20 months Aged Out No longer eligible b ased on patient's age to complete this topic Varicella Vaccines Aged Out No longer eligible based on patient's age to complete this topic Procedures Procedure Name Priority Date/Time Associated Diagnosis Comments CBC WITH AUTO DIFFERENTIAL Routine 06/03/2025 9:52 AM EDT Localized enlarged lymph nodes STANLEY FATIMA VIRUS IGG, IGM, NUCLEAR AND EARLY ANTIBODIES Routine 06/03/2025 9:52 AM EDT Localized enlarged lymph nodes LACTATE DEHYDROGENASE Routine 06/03/2025 9:52 AM EDT Localized enlarged lymph nodes CBC AND DIFFERENTIAL Routine 06/03/2025 9:52 AM EDT Localized enlarged lymph nodes HEPATITIS C ANTIBODY Routine 03/19/2025 9:23 AM [...] for screening for other suspected endocrine disorder from Last 3 Months or Most Recently Relevant to Health Maintenance Results * (ABNORMAL) Stanley fatima virus IgG, IgM, nuclear and early antibodies (06/03/2025 9:52 AM EDT) [facility] EBV VCA IgG Positive(A) Negative LAB CHEMISTRY METHOD 06/04/2025 10:28 AM EDT [facility] EBV VCA IgM Negative Negative LAB CHEMISTRY METHOD 06/04/2025 10:28 AM EDT [facility] EBV Nuclear Ag Ab Positive(A) Negative LAB CHEMISTRY METHOD 06/04/2025 10:28 AM EDT [facility] EBV Early Ag Ab Positive(A) Negative LAB CHEMISTRY METHOD 06/04/2025 10:28 AM EDT [facility] Blood Venous blood specimen / Unknown 06/03/2025 9:52 AM EDT 06/03/2025 4:59 PM EDT Narrative [facility] - 06/04/2025 10:28 AM EDT Suggestive of a past Stanley-Fatima Virus infection. Hung Ludwig NP LAB BLOOD ORDERABLES Final Result [facility] [address] [place] [address], * CBC auto differential (06/03/2025 9:52 AM EDT) [facility] WBC 4.9 4.8 - 10.8 K/mcL LAB HEMETOLOGY METHOD 06/03/2025 6:04 PM EDT [facility] RBC 4.70 4.50 - 5.50 M/mcL LAB HEMETOLOGY METHOD 06/03/2025 6:04 PM EDT [facility] Hemoglobin 14.4 13.5 - 17.5 g/dL LAB HEMETOLOGY METHOD 06/03/2025 6:04 PM EDT [facility] Hematocrit 43.2 42.0 - 54.0 % LAB HEMETOLOGY METHOD 06/03/2025 6:04 PM EDT [facility] MCV 92.1 79.0 - 98.0 FL LAB [facility] MCH 30.7 27.0 - 32.0 pcg LAB HEMETOLOGY METHOD 06/03/2025 6:04 PM EDT [facility] MCHC 33.3 32.0 - 37.0 g/dL LAB HEMETOLOGY METHOD 06/03/2025 6:04 PM [facility] RDW 11.9 11.0 - 15.0 % LAB HEMETOLOGY METHOD 06/03/2025 6:[facility] Platelets 202 130 - 400 K/mcL LAB [facility]EMETOLOG[facility] METHOD [facility]/03[facility]2025 6[facility] MPV 10.8 7.0 - 11.0 FL LAB [facility]EMETOLOGY METHOD 06/03/2025 6:[facility] NRBC 0.0 <1.0 % LAB HEMETOLOGY METHOD 06/03/2025 6:04 PM [facility] NRBC Absolute 0.00 <0.10 K/mcL LAB [facility]EMETOLOGY METHOD 06/03/2025 6:[facility] Neutrophils Relative 56.2 % LAB [facility]EMETOLOGY METHOD 06/03/2025 6:[facility] PM [facility] Lymphocytes Relative 32.2 % LAB [facility]EMETOLOGY METHOD 06/03[facility]2025 6:[facility] Monocytes Relative 9.0 % LAB HEMETOLOGY METHOD 06/03/2025 6:04 PM [facility] Eosinophils Relative 1.6 % LAB HEMETOLOGY METHOD 06/03/2025 6:04 PM EDT [facility] Basophils Relative 0.8 % LAB HEMETOLOGY METHOD 06/03/2025 6:04 PM EDT [facility] Immature Granulocytes Relative 0.2 % LAB HEMETOLOGY METHOD 06/03/2025 6:04 PM EDT [facility] Neutrophils Absolute 2.74 1.50 - 7.00 K/mcL LAB HEMETOLOGY METHOD 06/03/2025 6:04 PM EDT [facility] Lymphocytes Absolute 1.57 1.00 - 5.00 K/mcL LAB HEMETOLOGY METHOD 06/03/2025 6:04 PM EDT [facility] Monocytes Absolute 0.44 0.20 - 1.00 K/mcL LAB HEMETOLOGY METHOD 06/03/2025 6:04 PM EDT [facility] Eosinophils Absolute 0.08 0.00 - 0.50 K/mcL LAB HEMETOLOGY METHOD 06/03/2025 6:04 PM EDT [facility] Basophils Absolute 0.04 0.00 - 0.20 K/mcL LAB HEMETOLOGY METHOD 06/03/2025 6:04 PM EDT [facility] Immature Granulocytes Absolute 0.01 0.00 - 0.03 K/mcL LAB HEMETOLOGY METHOD 06/03/2025 6:04 PM EDT [facility] Blood Venous blood specimen / Unknown 06/03/2025 9:52 AM EDT 06/03/2025 4:59 PM EDT us Hung Ludwig SERVICE COORDINATOR LAB BLOOD ORDERABLES Final Result [facility] [address] [place] [address], * Lactate dehydrogenase (06/03/2025 9:52 AM EDT) LDH 164 120 - 246 unit/L LAB CHEMISTRY METHOD 06/03/2025 6:50 PM EDT [facility] Blood Venous blood specimen / Unknown 06/03/2025 9:52 AM EDT 06/03/2025 4:59 PM EDT Eddieliza Casionan SERVICE COORDINATOR LAB BLOOD ORDERABLES Final Result Performing Organization Address City/[facility]/ZIP Co de Phone Number [facility] [address] [place] [address], * Hepatitis C antibody (03/19/2025 9:23 AM EDT) Hepatitis C Antibody Negative Negative LAB CHEMISTRY METHOD 03/19/2025 7:13 PM EDT [facility] Blood Venous blood specimen / Unknown 03/19/2025 9:23 AM EDT 03/19/2025 5:29 PM EDT Eddielipatrick Casionan SERVICE COORDINATOR LAB BLOOD ORDERABLES Final Result Performing Organization Address City/[facility]/ZIP Co de Phone Number [facility] [address] [place] [address], [place] [phone] * HIV 1,2 antibody, p24 antigen with reflex to differentiation (03/19/2025 9:23 AM EDT) HIV Combo AB/AG Negative Negative LAB CHEMISTRY METHOD 03/19/2025 7:14 PM EDT [facility] Blood Venous blood specimen / Unknown 03/19/2025 9:23 AM EDT 03/19/2025 5:29 PM EDT Narrative [facility] - 03/19/2025 7:14 PM EDT This assay is a 4th generation assay allowing for earlier detection of HIV infection by detecting the presence of the HIV-1 p24 antigen as well as the traditional antibodies to HIV type 1 (including group O) and type 2. Use of a 4th generation assay is the current CDC recommendation for HIV screening. Hung Ludwig SERVICE COORDINATOR LAB BLOOD ORDERABLES Final Result [facility] [address] [place] [address], [place] [phone] * Lipid panel with reflex to direct LDL (03/19/2025 9:23 AM EDT) Cholesterol 130 0 - 200 mg/dL LAB CHEMISTRY METHOD 03/19/2025 6:07 PM EDT [facility] Triglycerides 60 0 - 150 mg/dL LAB CHEMISTRY METHOD 03/19/2025 6:07 PM EDT [facility] HDL 50 >=40 mg/dL LAB CHEMISTRY METHOD 03/19/2025 6:07 PM EDT [facility] LDL Calculated 68 0 - 100 mg/dL LAB CHEMISTRY METHOD 03/19/2025 6:07 PM EDT [facility] VLDL Cholesterol Wale 12 mg/dL LAB CHEMISTRY METHOD 03/19/2025 6:07 PM EDT [facility] Non HDL Chol. (LDL+VLDL) 80 <145 mg/dL LAB CHEMISTRY METHOD 03/19/2025 6:07 PM EDT [facility] Chol/HDL Ratio 2.6 0.0 - 4.4 LAB CHEMISTRY METHOD 03/19/2025 6:07 PM EDT [facility] Blood Venous blood specimen / Unknown 03/19/2025 9:23 AM EDT 03/19/2025 5:29 PM EDT Hung Ludwig SERVICE COORDINATOR LAB BLOOD ORDERABLES Final Result Performing Organization Address City/[facility]/ZIP Co de Phone Number [facility] [address] [place] [address], [place] [phone] from Last 3 Months or Most Recently Relevant to Health Maintenance Insurance [place]ICA[place] Care Teams Gm Mobile Relationship Specialty Start Date End Date Hung Ludwig NP [address] [place] [address] PCP - General Family Medicine 03/19/25
--- OUTSIDE RECORDS SUMMARY | 2025-07-22 19:45 | XMS_ITS | Patient Health Record ---
Author Organization [facility] Address [address] [place] [id number] Care Team Providers Care Manager Mall Name Role Phone Hung Ludwig Primary Care Provider [facility], Nursing Unavailable [phone] Dorys Evans Unavailable [phone] [facility], CHW Unavailable [phone] Allergies Allergen (clinical drug ingredient) Drug/Non Drug Allergy documented on EMR Reaction Allergy Type Onset Date Status Seafood Seafood (uncoded) anaphylaxis Allergy Active Results Component Value Reference Range Notes QUANTIFERON(R)-TB GOLD PLUS, 1 TUBE Reviewed date:06/05/2025 07:20:28 PM Interpretation:Negative Performing Lab:NL2, [employer] [facility] [id number] Denis Cheng Notes/Report: NON-FASTING QUANTIFERON(R)-TB GOLD PLUS, 1 TUBE NEGATIVE NEGATIVE Negative test result. M. tuberculosis complex infection unlikely. NIL 0.02 MITOGEN-NIL >10.00 TB1-NIL <0.00 TB2-NIL <0.00 The Nil tube value reflects the background interferon gamma immune response of the patient's blood sample. This value has been subtracted from the patient's displayed TB and Mitogen results. Lower than expected results with the Mitogen tube prevent false-negative Quantiferon readings by detecting a patient with a potential immune suppressive condition and/or suboptimal pre-analytical specimen handling. The TB1 Antigen tube is coated with the M. tuberculosis-specific antigens designed to elicit responses from TB antigen primed CD4+ helper T-lymphocytes. The TB2 Antigen tube is coated with the M. tuberculosis-specific antigens designed to elicit responses from TB antigen primed CD4+ helper and CD8+ cytotoxic T-lymphocytes. For additional information, please refer to https://education.[employer]/faq/OTI573 (This link is being provided for informational/ educational purposes only.) COMPREHENSIVE METABOLIC PANE L Reviewed date:03/20/2025 04:15:37 PM Interpretation:Normal Performing Lab: Notes/Report: Sodium 140 133-145 mmol/L Potassium 4.2 3.5-5.5 mmol/L Chloride 111 96-110 mmol/L CO2 25 21-32 mmol/L Anion Gap 4 3-11 Glucose 89 70-100 mg/dL BUN 17 5-25 mg/dL Creatinine 1.15 0.70-1.30 mg/dL eGFR 88 >=60 mL/min/1.73m2 Calculati on based on the Chronic Kidney Disease Epidemiology Collaboration (CKD-EPI) equation refit without adjustment for race. BUN/Creatinine Ratio 14.8 Calcium 9.0 8.5-10.5 mg/dL AST (SGOT) 24 10-42 unit/L ALT (SGPT) 28 10-60 unit/L Alkaline Phosphatase 78 42-121 unit/L Total Protein 7.4 6.0-8.0 g/dL Albumin 4.1 3.2-5.0 g/dL Total Bilirubin 1.0 0.0-1.4 mg/dL COMPLETE BLOOD COUNT Reviewed date:03/20/2025 04:15:51 PM Interpretation:Abnormal Performing Lab: Notes/Report: WBC 4.6 4.8-10.8 K/mcL RBC 4.80 4.50-5.50 M/mcL Hemoglobin 14.7 13.5-17.5 g/dL Hematocrit 43.8 42.0-54.0 % MCV 90.7 79.0-98.0 FL MCH 30.4 27.0-32.0 pcg MCHC 33.6 32.0-37.0 g/dL RDW 11.8 11.0-15.0 % Platelets 218 130-400 K/mcL MPV 10.8 7.0-11.0 FL NRBC 0.0 <1.0 % NRBC Absolute 0.00 <0.10 K/mcL LIPID PANEL WITH REFLEX TO D IRECT LDL Reviewed date:03/20/2025 04:15:26 PM Interpretation:Normal Performing Lab: Notes/Report: Cholesterol 130 0-200 mg/dL Triglycerides 60 0-150 mg/dL HDL 50 >=40 mg/dL LDL Calculated 68 0-100 mg/dL VLDL Cholesterol Wale 12 Non HDL Chol. (LDL+VLDL) 80 <145 mg/dL Chol/HDL Ratio 2.6 0.0-4.4 THYROID STIMULATING HORMONE WITH REFLEX TO FREE T4 AND FREE T3 Reviewed date:03/20/2025 04:14:14 PM Interpretation:Normal Performing Lab: Notes/Report: TSH 2.16 0.40-4.00 mcIU/mL TREPONEMA PALLIDUM ANTIBODY WITH REFLEX TO RPR AND PARTICLE AGGLUTINATION Reviewed date:03/20/2025 04:14:07 PM Interpretation:Negative Performing Lab: Notes/Report: T. Pallidum Antibodies Negative Negative HIV 1, 2 ANTIBODY, P24 ANTIG EN WITH REFLEX TO DIFFERENTIATION Reviewed date:03/20/2025 04:14:20 PM Interpretation:Negative Performing Lab: Notes/Report: This assay is a 4th generation assay allowing for earlier detection of HIV infection by detecting the presence of the HIV-1 p24 antigen as well as the traditional antibodies to HIV type 1 (including group O) and type 2. Use of a 4th generation assay is the current CDC recommendation for HIV screening. HIV Combo AB/AG Negative Negative HEPATITIS C ANTIBODY Reviewed date:03/20/2025 04:14:56 PM Interpretation:Negative Performing Lab: Notes/Report: Hepatitis C Antibody Negative Negative CHLAMYDIA TRACHOMATIS AND NE ISSERIA GONORRHOEAE MOLECULAR STUDY Reviewed date:03/20/2025 04:14:00 PM Interpretation:Negative Performing Lab: Notes/Report: Neisseria gonorrhoeae PCR Negative Negative Chlamydia trachomatis PCR Negative Negative HEPATITIS B SURFACE ANTIGEN WITH REFLEX TO CONFIRMATION Reviewed date:03/20/2025 04:15:04 PM Interpretation:Negative Performing Lab: Notes/Report: Over the counter supplements containing high doses of biotin may interfere with this assay. If interference is suspected, patients shoud be retested after refraining from biotin supplements for 72 hours. Hepatitis B Surface Ag Negative Negative HEPATITIS B CORE ANTIBODY, T OTAL Reviewed date:03/20/2025 04:14:49 PM Interpretation:Negative Performing Lab: Notes/Report: Hep B Core Total Ab Negative Negative HEPATITIS B SURFACE ANTIBODY Reviewed date:03/20/2025 04:15:20 PM Interpretation:+ immunity Performing Lab: Notes/Report: >=10 mIU/mL is considered to be consistent with immunity. Hepatitis B Surface Ab Positive Negative Hepatitis B Surface Ab Quantitative 34.4 CBC WITH AUTO DIFFERENTIAL Reviewed date:06/04/2025 09:58:13 AM Interpretation:Normal Performing Lab: Notes/Report: WBC 4.9 4.8-10.8 K/mcL RBC 4.70 4.50-5.50 M/mcL Hemoglobin 14.4 13.5-17.5 g/dL Hematocrit 43.2 42.0-54.0 % MCV 92.1 79.0-98.0 FL MCH 30.7 27.0-32.0 pcg MCHC 33.3 32.0-37.0 g/dL RDW 11.9 11.0-15.0 % Platelets 202 130-400 K/mcL MPV 10.8 7.0-11.0 FL NRBC 0.0 <1.0 % NRBC Absolute 0.00 <0.10 K/mcL Neutrophils Relative 56.2 Lymphocytes Relative 32.2 Monocytes Relative 9.0 Eosinophils Relative 1.6 Basophils Relative 0.8 Immature Granulocytes Relative 0.2 Neutrophils Absolute 2.74 1.50-7.00 K/mcL Lymphocytes Absolute 1.57 1.00-5.00 K/mcL Monocytes Absolute 0.44 0.20-1.00 K/mcL Eosinophils Absolute 0.08 0.00-0.50 K/mcL Basophils Absolute 0.04 0.00-0.20 K/mcL Immature Granulocytes Absolute 0.01 0.00-0.03 K/mcL LACTATE DEHYDROGENASE Reviewed date:06/04/2025 09:50:18 AM Interpretation:Normal Performing Lab: Notes/Report: LDH 164 120-246 unit/L STANLEY FATIMA VIRUS IGG, IGM, NUCLEAR AND EARLY ANTIBODIES Reviewed date:06/04/2025 11:16:40 AM Interpretation:+ IgG; negative IgM Performing Lab: Notes/Report: Suggestive of a past Stanley-Fatima Virus infection. EBV VCA IgG Positive Negative EBV VCA IgM Negative Negative EBV Nuclear Ag Ab Positive Negative EBV Early Ag Ab Positive Negative Reason For Referral Reason refer for evalua tion and treatment of lumbar pain Diagnosis 1 Dorsalgia, unspecifi ed (M54.9) Referral Organization [facility] Referring Provider First Name Hung Referring Provider Last Name Oziel Referring Provider Speciality Nurse Prac titioner Referred Organization [facility] Referred Provider [facility] Referred Address [address] [place], [place],[address],[place] Referred Provider Specialty Physical The rapist General Notes AlinaPremaSneha 06/04/2025 01:24:16 PM > [id number] x 12 visits - efaxed Referral Priority Routine Medications Medication SIG (Take, Route, Frequency, Duration) Notes Start Date End Date Status Albuterol Sulfate 108 (90 Base) MCG/ACT 1 puff as needed Inhalation every 4 hrs for 30 days As needed Active Social History Sex Assigned At : Social History Observation Description Sex Assigned At Male Problems Problem Type SNOMED Code ICD Code Onset Dates Problem Status W/U Status Risk Notes Problem Body mass index 20-24 - normal (676722224) Body mass index [BMI] 20.0-20.9, adult (Z68.20) Active confirmed Problem Sheltered homelessness (846687339253605 ) Sheltered homelessness (Z59.01) Active confirmed Vital Signs Temperature 98.0 degrees Fahrenheit 06/03/2025 Blood pressure diastolic 76 06/03/2025 Oximetry 97 06/03/2025 Height 67 in 06/03/2025 Blood pressure systolic 117 06/03/2025 Weight 133.6 lbs 06/03/2025 BMI 20.92 kg/m2 06/03/2025 Procedures Procedure Date Ordered Date Performed Result Body Sit e Pulmonary Function Test 07/22/2025 N/A Encounters Encounter Location Date Provider Diagnosis [facility] [address] [place] [address] 10/29/2024 Dorys Evans [facility] [employer] [address] [place] [phone] 10/30/2024 Dorys Evans [facility] [address] [facility] [place], [place] [phone] 03/14/2025 Nursing [facility] Encounter for screening for COVID-19 Z11.52 ; Encounter for screening for cardiovascular disorders Z13.6 ; Encounter for screening for respiratory tuberculosis Z11.1 ; Encounter for screening for infectious and parasitic diseases, unspecified Z11.9 ; Encounter for screening for other suspected endocrine disorder Z13.29 ; Encounter for screening for infections with a predominantly sexual mode of transmission Z11.3 ; Sheltered homelessness Z59.01 and Encounter for screening for depression Z13.[address] [address] 03/19/2025 Nursing [facility] Encounter for screening, unspecified Z13.[address] [address] 06/03/2025 Eddieliza Casionan Localized enlarged lymph nodes R59.0 ; Encounter for general adult medical examination with abnormal findings Z00.01 ; Sheltered homelessness Z59.01 ; Encounter for screening for COVID-19 Z11.52 ; Body mass index [BMI] 20.0-20.9, adult Z68.20 and Dorsalgia, unspecified M54.9 [facility] [address] [place] [address] [facility] [place], [place] [phone] 06/12/2025 Eddieliza Casionan Person consulting for explanation of examination or test findings Z71.2 and Localized enlarged lymph nodes R59.[address] [address] 07/22/2025 Eddieliza Casionan Other forms of dyspnea R06.09 [facility] [address] [phone] 02/20/[address] [address] 03/14/2025 Eddieliza Casionan [address] [address] 07/22/2025 Eddieliza Casionan Assessments Encounter Date Diagnosis (ICD Code) Assessment Notes Treatment Notes Treatment Clinical Notes Section Notes 03/19/2025 Encounter for screening, unspecified (ICD-10 - Z13.9) Lab work drawn as ordered, per protocol using aseptic technique. Client will be notified of all lab values within two weeks, Client agrees with plan, allowed to clarify questions about plan. 03/14/2025 Encounter for screening for cardiovascular disorders (ICD-10 - Z13.6) 03/14/2025 Encounter for screening for COVID-19 (ICD-10 - [...] you are having concerning symptoms for COVID-19. 06/03/2025 Localized enlarged lymph nodes (ICD-10 - R59.0) He denies constitutional symptoms CBC in unremarkable. We will recheck to evaluate infection or other hematologic disease We will check for Stanley Fatima Virus infection. He is already negative from HIV, Syphilis and hepatitis There is no suspicion for autoimmune disease with no reported constitutional symptoms, so we will not do KAROLYN Lactate Dehydrogenase will be done to check active inflammation which can be elevated with lymphoma We may consider Ultrasound to assess size and morphology 06/03/2025 Encounter for general adult medical examination with abnormal findings (ICD-10 - Z00.01) Annual PE performed.General recommendation for good health made: brush/floss your teeth 2x per day. Eat a healthy diet and obtain 30 minutes of aerobic exercise 5/7 days per week.. Maintain high in take of water and avoid soda and energy drinks. Get 8 hours of sleep every night. 06/12/2025 Localized enlarged lymph nodes (ICD-10 - R59.0) No active EBV infection. LDH negative 06/12/2025 Person consulting for explanation of examination or test findings (ICD-10 - Z71.2) Reviewed results of recent diagnostic testing with client. Testing was (ab)normal. Future plan of action discussed. 07/22/2025 Other forms of dyspnea (ICD-10 - R06.09) 03/14/2025 Encounter for screening for respiratory tuberculosis (ICD-10 - Z11.1) 06/03/2025 Sheltered homelessness (ICD-10 - Z59.01) He is approved for an apartment with [employer] 03/14/2025 Encounter for screening for infectious and parasitic diseases, unspecified (ICD-10 - Z11.9) 06/03/2025 Encounter for screening for COVID-19 (ICD-10 - [...] you are having concerning symptoms for COVID-19. 03/14/2025 Encounter for screening for other suspected endocrine disorder (ICD-10 - Z13.29) 06/03/2025 Body mass index [BMI] 20.0-20.9, adult (ICD-10 - Z68.20) Normal BMI 03/14/2025 Encounter for screening for infections with a predominantly sexual mode of transmission (ICD-10 - Z11.3) 06/03/2025 Dorsalgia, unspecified (ICD-10 - M54.9) Requests to see Physical Therapy 03/14/2025 Sheltered homelessness (ICD-10 - Z59.01) Medical, social, and psych history reviewed and documented. [facility] records reviewed, no immunization history. No medication reconciliation performed as pt. does not report being on any current medication. Pt. denies any urgent concerns at time of intake. Pt. given an appt to establish care with provider Hung Ludwig NP, pt. encouraged to contact clinic with any questions or concerns prior to that appt. 03/14/2025 Encounter for screening for depression (ICD-10 - Z13.31) PHQ-9 assessed, score was 3, minimal depression, pt. denies engagement in MH services in the community, and denies interest for a referral at time of intake. 12/06/2024 Other Time spent in visit: minutes Covid verbal screening negative. 04/23/2025 Other 03/14/2025 Other 06/03/2025 Other 06/12/2025 Other Time spent in visit: 8 minutes Plan Of Treatment Pending Test Test Name Order Date Pulmonary Function Test 07/22/2025 CBC 03/14/2025 CBC WITH AUTO DIFF 06/03/2025 CHLAMYDIA / GC DNA W RFLX 03/14/2025 STANLEY FATIMA VIRUS, DNA PCR 06/03/2025 GLYCOHEMOGLOBIN PROFILE 06/03/2025 HEPATITIS B CORE AB TOTAL 03/14/2025 HEPATITIS B SURFACE ANTIBODY 03/14/2025 HEPATITIS B SURFACE ANTIGEN 03/14/2025 HIV 1 AND 2 ANTIBODY SCREEN 03/14/2025 LACTATE DEHYDROGENASE 06/03/2025 LIPID PROFILE 03/14/2025 TSH CASCADE 03/14/2025 COMPREHENSIVE METABOLIC PANEL 03/14/2025 TREPONEMA PALLIDUM ANTIBODY WITH REFLEX TO RPR AND PARTICLE AGGLUTINATION 03/14/2025 HEPATITIS C ANTIBODY 03/14/2025 Next Appt Details Provider Name:Hung ragland, 06/11/2026 10:00:00 AM, [address] [place] [address], [place], [address], Insurance Providers Payer Name Payer Address Payer Phone Subscriber Number Group Number Insured Name Patient Relationship to Insured Coverage Start Date Coverage End Date [place] Medicaid C3 [address] [place], [place] [id number] Aide Christiansen Self - patient is the insured Medical (General) History Medical History History ICD Code Asthma Hospitalization History Reason Date(Month/Year) [facility] [place] - Left sided pneumothroax 12/2021
== END 2025-07-22 19:24 | disposition home or self-care (01) ==
PROVIDERS: Emergency Provider Student in an Organized Health Care Education/Training Program
DX: J06.9 Acute upper respiratory infection, unspecified (principal); J45.909 Unspecified asthma, uncomplicated; Z79.51 Long term (current) use of inhaled steroids
CPT/HCPCS: 99282; 99283